=== PATIENT | female | born 1935 | race Caucasian/White ===

== ENCOUNTER 2020-04-05 13:20 | Outpatient (CLI) | payer OTHER, SELFPAY ==
--- NOTE | 2020-04-05 13:30 | XR_ITS ---
WS: [id number] LUMBAR SPINE: 3 VIEWS TECHNIQUE: AP, lateral and L5-S1 spot. HISTORY: ACUTE MIDLINE LOW BACK PAIN WITHOUT SCIATICA COMPARISON: 04/18/2018 Severe osteopenia. Mild S-shaped curvature lumbar spine with asymmetric disc space narrowing most sig nificant at L4-5. L2 compression fracture by 20% is unchanged. No new fracture. Marked facet joint ar thritis throughout the lumbar spine. Atherosclerosis aorta. SI joints are symmetric bilaterally. No soft tissue abnormalities. XR/XR lumbar spine 2-3V* [id number] IMPRESSION: 1. Severe osteopenia and degenerative disc disease most significant at L4-5. 2. Stable chronic L2 compression fracture by 20%.
== END 2020-04-05 13:21 | disposition home or self-care (01) ==
LOC: RAD 13:27
PROVIDERS: PCP Family Medicine; Visit Provider Nurse Practitioner Family
DX: M85.89 Other specified disorders of bone density and structure, multiple sites (principal); M51.36 Other intervertebral disc degeneration, lumbar region; M48.56XA Collapsed vertebra, not elsewhere classified, lumbar region, initial encounter for fracture; X58.XXXA Exposure to other specified factors, initial encounter
CPT/HCPCS: 72100

== ENCOUNTER 2021-01-18 12:34 | Observation (INO) | payer MEDICARE, SELFPAY ==
[2021-01-18] VITALS (53 sets, daily range): BP systolic 156–203; BP diastolic 76–109; PULSE 68–152; RESP 14–38; TEMP 36.4–36.7; O2SAT 94–100; BMI 20.3
--- NOTE | 2021-01-18 12:36 | ECG_ITS ---
[facility] Test Date: 2021-01-18 Pat Name: Mary Montes Department: Room: Gender: Female Gynecologist: : 1935 Requested By: Nicolás Fields Order Number: [id number] Micheal MD: Speedy Beatty M.D. Measurements Intervals [place] Rate: 151 P: 67 MA: 143 QRS: -58 QRSD: 81 T: 72 QT: 327 QTc: 518 Interpretive Statements ATRIAL FLUTTER WITH RVR MARKED LEFT AXIS DEVIATION [QRS AXIS < -30] POSSIBLE RIGHT VENTRICULAR CONDUCTION DELAY [RSR (QR) IN V1/V2] SEPTAL MYOCARDIAL INFARCTION [40+ ms Q WAVE IN V1/V2], OF INDETERMINATE AGE Compared to ECG 01/06/2016 05:13:04 Left-axis deviation now present Myocardial infarct finding now present Sinus bradycardia no longer present T-wave abnormality no longer present Possible ischemia no longer present Electronically Signed On 01-18-2021 17:35:22 CDT by Speedy Beatty M.D. [id number]
--- NOTE | 2021-01-18 12:36 | XR_ITS ---
WS: [id number] Portable AP upright chest, 01/18/2021 Clinical Data: altered mental status Comparison: PA and lateral chest, 09/06/2017. Findings: No nodules, masses or effusions are seen. The heart is normal. The pulmonary vascularity is not increased. No pneumonia or pneumothorax is seen. The diaphragms are flattened. The aortic arch a nd descending aorta show calcification and tortuosity. There are monitor leads on the chest wall. XR/XR chest 1V portable [id number] Impression: Atherosclerosis and hyperinflation.
--- NOTE | 2021-01-18 12:56 | ED_ITS ---
HPI - Psych General: Chief Complaint: Psychiatric Symptoms Stated Complaint: SI/ BEHAVIORAL ISSUES Time Seen by Provider: 01/18/21 12:36 History of Present Illness: HPI Narrative: 85-year-old female presents to the emergency room via EMS. They were called by the neighbor place for also presents police put an affidavit on the chart they found several suicide notes in the house which they brought in copy and scanned to the chart. Patient refuses discussed these she is very verbally aggressive and angry she is angry at her neighbor for what she describes as betraying her. She refuses to answer most questions she denies any abdominal pain chest pain or shortness of breath. The daughter also is filling out an affidavit as did the police. She makes illusions to harming herself in conversation with me but refuses to discuss directly when asked specifically she denies it however the notes reflect otherwise. She refuses to discuss the notes. complaint: suicidal ideation Onset (ago): unknown Duration: constant History of same: No Relieving factors: none Exacerbating factors: none Associated psychiatric symptoms: depression and suicidal ideation Associated symptoms: Reports depression and suicidal ideation; Deny auditory hallucinations, visual hallucinations, delusions or homicidal ideation If self harm: admits thoughts of self harm Review of Systems Const: Denies: fever(s), chills, body aches, change in appetite, fatigue or malaise ENMT: Denies: throat pain, ear or mastoid pain, nasal discharge or nasal congestion Card: Denies: chest pain, edema, dyspnea on exertion or orthopnea Resp: Denies: dyspnea, productive cough or non-productive cough GI: Denies: abdominal pain, nausea, vomiting, hematemesis, coffee ground emesis, diarrhea, constipation, bloating, hematochezia or melena : Denies: flank pain, difficulty voiding, dysuria, urinary frequency or urinary urgency Skin/Breast: Denies: rash or pruritus Psych: Reports: depression and suicidal ideation; Denies: visual hallucinations, auditory hallucinations or homicidal ideation Physical Exam Const: COMMON NORMALS: no acute distress GENERAL APPEARANCE: cooperative and comfortable ORIENTATION/CONSCIOUSNESS: Yes awake, Yes oriented to person, Yes oriented to place and Yes oriented to time HENMT: COMMON NORMALS: normocephalic, atraumatic and hearing grossly normal bilaterally HEAD & SCALP: normocephalic and atraumatic Neck/C-Spine: COMMON NORMALS: no JVD Resp: COMMON NORMALS: normal respiratory effort, No retractions, No use of accessory muscles and clear to auscultation bilaterally AUSCULTATION: clear to auscultation bilaterally Cardio: COMMON NORMALS: no JVD, regular rate, regular rhythm and No murmurs present (Cardio) RATE: regular rate RHYTHM: regular rhythm GI: COMMON NORMALS: Soft to palpation and No hepatosplenomegaly present AUSCULTATION: Yes normoactive bowel sounds PALPATION: Yes Soft to palpation, No Tenderness to palpation present (GI), No Guarding due to palpation present (GI) and Yes No hepatosplenomegaly present Extremity: COMMON NORMALS: normal to inspection, capillary refill normal, no clubbing, cyanosis or edema, no calf tenderness and no pedal edema Neuro: SENSORIUM/ORIENTATION: Yes oriented to person, Yes oriented to place and Yes oriented to time Psych: THOUGHT CONTENT: No delusions Skin: COMMON NORMALS: no rashes or lesions noted GENERAL SKIN EXAM: no rashes or lesions noted Course Vital Signs: Vital signs: Vital Signs Temperature 98.0 F 01/18/21 12:35 Pulse Rate 113 H 01/18/21 15:21 Respiratory Rate 16 01/18/21 15:21 Blood Pressure 173/90 01/18/21 15:21 Pulse Oximetry 97 01/18/21 15:21 MDM - Psych MDM Narrative: Medical decision making narrative: Patient placed on a 96-hour hold. We will start working on placement. Acetaminophen came back markedly elevated. We checked with 911 they received a call from the neighbor at around 11:47 AM.Blood was drawn at 117. Suspect that it was approximately 2 hours after ingestion. Acidosis started will get serial enzymes as well admit to ICU. Consult psychiatry. Lab Data: Labs: Lab Results 01/18/21 01/18/21 01/18/21 Range/Units 13:17 13:17 13:17 WBC 6.2 (4.0-10.0) 10^3/ uL RBC 4.48 (4.1-5.3) 10^6/u L Hgb 14.6 (11.5-15.3) g/dL Hct 43.9 (37.0-47.0) % MCV 98.0 (81-99) fL MCH 32.6 (28.0-34.0) pg MCHC 33.3 (30.0-36.0) g/dL RDW 12.5 (12.1-15.1) % Plt Count 175 (130-400) 10^3/c mm MPV 10.2 (7.4-10.4) fL Neut % (Auto) 62.3 % Lymph % (Auto) 29.7 % [place] % (Auto) 6.4 % Eos % (Auto) 1.1 % Baso % (Auto) 0.3 % Neut # (Auto) 3.87 (1.8-7.7) 10^3/u L Lymph # (Auto) 1.9 (0.8-4.8) 10^3/u L [place] # (Auto) 0.4 (0.2-0.9) 10^3/u L Eos # (Auto) 0.1 (0.0-0.8) 10^3/u L Baso # (Auto) 0.0 (0.0-0.1) 10^3/u L Nucleated RBC % (a uto) 0 % Nucleated RBCs # 0.0 /100WBC PT (12.1-14.9) SECO NDS INR (0.8-1.2) APTT (23.9-36.7) SECO NDS Sodium 139 (136-145) mmol/L Potassium 3.6 (3.5-5.1) mmol/L Chloride 100 (98-107) mmol/L Carbon Dioxide 24 (22-29) mmol/L Anion Gap 18.6 (5-19) BUN 19 (8-23) mg/dL Creatinine 0.8 (0.5-0.9) mg/dL GFR Calculation Not Reportable Glucose 127 H (65-115) mg/dL Calculated Osmolal ity 292 (285-295) mOsm/k g Calcium 9.0 (8.5-10.5) mg/dL Total Bilirubin 0.6 (0.15-1.2) mg/dL AST 14 (0-32) U/L ALT 7 (0-33) U/L Alkaline Phosphata se 80 (35-105) IU/L Ammonia 27 (11-51) umol/L Total Protein 6.8 (6.6-8.7) g/dL Albumin 4.1 (3.5-5.2) g/dL Globulin 2.7 (1.3-4.6) g/dL TSH 2.28 (0.27-4.20) uIU/ mL Urine Color (Yellow) Urine Appearance (CLEAR) Urine pH (5-7) Ur Specific Gravit y (1.005-1.030) Urine Protein (Negative) Urine Glucose (UA) (Normal) Urine Ketones (Negative) Urine Blood (Negative) Urine Nitrate (Negative) Urine Bilirubin (Negative) Urine Urobilinogen (Negative) mg/dL Ur Leukocyte Lisa ase (Negative) Salicylates < 0.3 L (3-10) mg/dL Urine Opiates Scre en (Negative) ng/mL Acetaminophen 131.3 H* (10-30) ug/mL Ur Barbiturates Sc reen (Negative) ng/mL Ur Phencyclidine S crn (Negative) ng/mL Ur Amphetamines Sc reen (Negative) ng/mL U Benzodiazepines Scrn (Negative) ng/mL Urine Cocaine Scre en (Negative) ng/mL U Marijuana (THC) Screen (Negative) ng/mL Ethyl Alcohol < 10 (0-10) mg/dL 01/18/21 01/18/21 01/18/21 Range/Units 13:17 13:22 13:22 WBC (4.0-10.0) 10^3/ uL RBC (4.1-5.3) 10^6/u L Hgb (11.5-15.3) g/dL Hct (37.0-47.0) % MCV (81-99) fL MCH (28.0-34.0) pg MCHC (30.0-36.0) g/dL RDW (12.1-15.1) % Plt Count (130-400) 10^3/c mm MPV (7.4-10.4) fL Neut % (Auto) % Lymph % (Auto) % [place] % (Auto) % Eos % (Auto) % Baso % (Auto) % Neut # (Auto) (1.8-7.7) 10^3/u L Lymph # (Auto) (0.8-4.8) 10^3/u L [place] # (Auto) (0.2-0.9) 10^3/u L Eos # (Auto) (0.0-0.8) 10^3/u L Baso # (Auto) (0.0-0.1) 10^3/u L Nucleated RBC % (a uto) % Nucleated RBCs # /100WBC PT 13.30 (12.1-14.9) SECO NDS INR 0.98 (0.8-1.2) APTT 30.4 (23.9-36.7) SECO NDS Sodium (136-145) mmol/L Potassium (3.5-5.1) mmol/L Chloride (98-107) mmol/L Carbon Dioxide (22-29) mmol/L Anion Gap (5-19) BUN (8-23) mg/dL Creatinine (0.5-0.9) mg/dL GFR Calculation Glucose (65-115) mg/dL Calculated Osmolal ity (285-295) mOsm/k g Calcium (8.5-10.5) mg/dL Total Bilirubin (0.15-1.2) mg/dL AST (0-32) U/L ALT (0-33) U/L Alkaline Phosphata se (35-105) IU/L Ammonia (11-51) umol/L Total Protein (6.6-8.7) g/dL Albumin (3.5-5.2) g/dL Globulin (1.3-4.6) g/dL TSH (0.27-4.20) uIU/ mL Urine Color Yellow (Yellow) Urine Appearance Clear (CLEAR) Urine pH 5 (5-7) Ur Specific Gravit y 1.020 (1.005-1.030) Urine Protein Neg (Negative) Urine Glucose (UA) Norm (Normal) Urine Ketones Negative (Negative) Urine Blood Neg (Negative) Urine Nitrate Negative (Negative) Urine Bilirubin Neg (Negative) Urine Urobilinogen Norm (Negative) mg/dL Ur Leukocyte Lisa ase Negative (Negative) Salicylates (3-10) mg/dL Urine Opiates Scre en Negative (Negative) ng/mL Acetaminophen (10-30) ug/mL Ur Barbiturates Sc reen Negative (Negative) ng/mL Ur Phencyclidine S crn Negative (Negative) ng/mL Ur Amphetamines Sc reen Negative (Negative) ng/mL U Benzodiazepines Scrn Negative (Negative) ng/mL Urine Cocaine Scre en Negative (Negative) ng/mL U Marijuana (THC) Screen Negative (Negative) ng/mL Ethyl Alcohol (0-10) mg/dL Discharge Plan Discharge Patient Disposition: Admitted As Inpatient Clinical Impression: Suicide attempt, Acetaminophen overdose Condition: Stable Prescriptions: No Action metoprolol tartrate 100 mg tablet 100 mg PO BID RF: 0 Referrals: Jaquan Sidhu MD [Primary Care Provider] - Patient Instructions: Opioid Safety Coding Level of Care Code ED Foreign Exchange Clerk for Kelly Fwd Exam Comprehensive
[2021-01-18 13:26] LABS: Basophils % 0.3 %; Eosinophils # 0.1 10^3/uL (0.0-0.8); Eosinophils % 1.1 %; Hematocrit 43.9 % (37.0-47.0); Hemoglobin 14.6 g/dL (11.5-15.3); Lymphocytes # 1.9 10^3/uL (0.8-4.8); Lymphocytes % 29.7 %; Mean Corpuscular HGB Conc 33.3 g/dL (30.0-36.0); Mean Corpuscular Hemoglobin 32.6 pg (28.0-34.0); Mean Platelet Volume 10.2 fL (7.4-10.4); Monocytes # 0.4 10^3/uL (0.2-0.9); Monocytes % 6.4 %; Neutrophils # 3.87 10^3/uL (1.8-7.7); Neutrophils % 62.3 %; Nucleated Red Blood Cells % 0 %; Platelet Count 175 10^3/cmm (130-400); Red Blood Count 4.48 10^6/uL (4.1-5.3); Red Cell Distribution Width 12.5 % (12.1-15.1); White Blood Count 6.2 10^3/uL (4.0-10.0)
[2021-01-18 13:42] LABS: Add Urine Microscopic? NO; Charge for UA Resulting for Rev
[2021-01-18 13:45] LABS: Ammonia 27 umol/L (11-51)
[2021-01-18 13:49] LABS: Bilirubin Urine Neg (Negative); Blood Urine Neg (Negative); Glucose Urine UA Norm (Normal); Ketones Urine Negative (Negative); Leukocyte Esterase Urine Negative (Negative); Nitrate Urine Negative (Negative); Protein Urine Neg (Negative); Urine Appearance Clear (CLEAR); Urine Color Yellow (Yellow); Urobilinogen Urine Norm (Negative); pH Urine 5 (5-7)
[2021-01-18 13:55] LABS: Alanine Aminotransferase 7 U/L (0-33); Albumin Level 4.1 g/dL (3.5-5.2); Alkaline Phosphatase 80 IU/L (35-105); Anion Gap 18.6 (5-19); Aspartate Amino Transferase 14 U/L (0-32); Blood Urea Nitrogen 19 mg/dL (8-23); Carbon Dioxide 24 mmol/L (22-29); Chloride 100 mmol/L (98-107); Globulin 2.7 g/dL (1.3-4.6); Glucose 127 mg/dL (65-115); Osmolality Calculated 292 mOsm/kg (285-295); Potassium 3.6 mmol/L (3.5-5.1); Sodium 139 mmol/L (136-145); Thyroid Stimulating Hormone 2.28 uIU/mL (0.27-4.20); Total Bilirubin 0.6 mg/dL (0.15-1.2); Total Protein 6.8 g/dL (6.6-8.7)
[2021-01-18 13:59] LABS: Amphetamines Screen Urine Negative (Negative); Barbiturates Screen Urine Negative (Negative); Benzodiazepines Screen Urine Negative (Negative); Cocaine Screen Urine Negative (Negative); Opiate Screen Urine Negative (Negative); PCP Screen Urine Negative (Negative); THC Screen Urine Negative (Negative)
[2021-01-18 14:11] LABS: Salicylate < 0.3 mg/dL (3-10)
[2021-01-18 14:13] LABS: Acetaminophen 131.3 ug/mL (10-30); Alcohol Level < 10 mg/dL (0-10)
--- NOTE | 2021-01-18 14:27 | PC.NURSE ---
poison control was contacted and info was sent over.
[2021-01-18 14:43] LABS: INR 0.98 (0.8-1.2)
[2021-01-18 14:44] LABS: Partial Thromboplastin Time 30.4 SECONDS (23.9-36.7)
[2021-01-18] MEDS: sodium chloride 0.9% 1,000 ML 999 ML IV (15:16)
[2021-01-18] MEDS: metoprolol tartrate 50 mg Tablet 100 MG PO ×2 (15:16→20:54)
[2021-01-18 16:00] LABS: Troponin(5th) Baseline 19 ng/L (0-10)
--- NOTE | 2021-01-18 16:00 | PM.HP ---
Providers/Chief Complaint Primary Care Provider: Jaquan Sidhu MD Chief Complaint: SI/ BEHAVIORAL ISSUES History of Present Illness Mary Montes is a 85 year old female with no known significant past medical history, presents to the emergency room via EMS. EMS was called by the [facility] for also presents police put an affidavit on the chart they found several suicide notes in the house which they brought in copy and scanned to the chart. When I examined the patient patient refuses to discuss a lot of things, she do not want to discuss much more about herself. History taking is difficult, based on the limited interaction, it looks less likely that she will harm herself, or others. Upon arrival in the ER she was worked up for above-mentioned complaint. Pertinent labs: Serum acetaminophen level:131, serum salicylate level< 0.3, serum Ethyl alcohol level:< 10. CMP is normal, CBC is normal, serum ammonia is normal. Review of Systems Card: Denies: palpitations, edema, swelling of feet/ankles, dyspnea on exertion, orthopnea or leg pain with exertion Resp: Denies: dyspnea, productive cough, wheezing or pain on inspiration GI: Denies: abdominal pain, nausea, vomiting, diarrhea or constipation : Denies: flank pain Musc: Denies: back pain, extremity pain or extremity swelling Neuro: Denies: headache(s), difficulty walking or confusion Medications/Allergies Home Medications Medication Instructions Recorded Confirmed Last Taken Type metoprolol tartrate 100 mg PO BID 01/18/21 01/18/21 01/17/21 History Allergies Allergy/AdvReac Type Severity Reaction Status Date / Time No Known Allergies Allergy Unverified 01/18/21 14:07 Vitals/I&O/Wt Last Vital Signs Temp 98.0 F 01/18/21 12:35 Pulse 113 H 01/18/21 15:21 Resp 16 01/18/21 15:21 BP 173/90 01/18/21 15:21 Pulse Ox 97 01/18/21 15:21 Weight last 48 hrs Weight 58.967 kg Physical Exam Const: COMMON NORMALS: patient oriented x3 HENMT: COMMON NORMALS: normocephalic and atraumatic HEAD & SCALP: normocephalic and atraumatic Resp: AUSCULTATION: clear to auscultation bilaterally Cardio: COMMON NORMALS: regular rate, regular rhythm, S1 normal heart sound present, S2 normal heart sound present, No gallops present (Cardio), No murmurs present (Cardio), No rub (Cardio) and Peripheral pulses 2+ throughout RATE: regular rate RHYTHM: regular rhythm HEART SOUNDS: S1 normal heart sound present and S2 normal heart sound present PERIPHERAL PULSES: Peripheral pulses 2+ throughout GI: COMMON NORMALS: Normal to inspection, nondistended, normoactive bowel sounds present, Soft to palpation, non-tender, No hepatosplenomegaly present and no masses AUSCULTATION: Yes normoactive bowel sounds PALPATION: Yes Soft to palpation and Yes No hepatosplenomegaly present RECTAL EXAM: deferred Extremity: COMMON NORMALS: no clubbing, cyanosis or edema and no pedal edema Neuro: COMMON NORMALS: patient oriented x3 Data : 01/18/21 13:17 01/18/21 13:17 A&P Assessment and plan (1) Acetaminophen overdose: Currently she is receiving NAC as per the protocol. Monitor serum acetaminophen level: Every 6 hours Monitor CMP every 6 hours. Poison control contacted. Status: Acute (2) Suicide attempt: Consult psych Status: Acute Attestations Medical Necessity Statement*: Patient needs to be in hospital for management of acetaminophen overdose and suicidal ideation. Anticipated length of stay greater than 2 midnights. Coding Level of Care Code Acute Cylinder Machine Operator Pulp Drier for Kelly Lucero Diagnoses Acetaminophen overdose T39.1X1A Suicide attempt T14.91XA
[2021-01-18 16:18] LABS: Troponin 5 2HR 13.44 ng/L (0-10); Troponin 5 2HR Delta -5.56 ABS# (0-10)
--- NOTE | 2021-01-18 16:49 | ECG_ITS ---
[facility] Test Date: 2021-01-18 Pat Name: Mary Montes Department: Room: Gender: Female Numerical Control Nesting Operator: : 1935 Requested By: Nicolás Fields Order Number: [id number] Micheal MD: Speedy Beatty M.D. Measurements Intervals [place] Rate: 80 P: 147 ME: 166 QRS: -25 QRSD: 86 T: 151 QT: 368 QTc: 427 Interpretive Statements ECTOPIC ATRIAL RHYTHM POSSIBLE LEFT ATRIAL ENLARGEMENT [-0.1mV P WAVE IN V1/V2] POSSIBLE RIGHT VENTRICULAR CONDUCTION DELAY [RSR (QR) IN V1/V2] SEPTAL MYOCARDIAL INFARCTION [40+ ms Q WAVE IN V1/V2], OF INDETERMINATE AGE PROBABLE LATERAL MYOCARDIAL INFARCTION [35 ms Q WAVE IN I/aVL/V5/V6], OF INDETERMINATE AGE Compared to ECG 01/18/2021 13:29:28 Ectopic atrial rhythm now present Left-axis deviation no longer present Myocardial infarct finding still present Electronically Signed On 01-18-2021 18:34:21 CDT by Speedy Beatty M.D. [email or web address] county [email or web address] medical specialty hospital - [id number]
[2021-01-18 20:33] LABS: Acetaminophen 46.1 ug/mL (10-30); Alanine Aminotransferase 6 U/L (0-33); Albumin Level 3.6 g/dL (3.5-5.2); Alkaline Phosphatase 72 IU/L (35-105); Anion Gap 17.2 (5-19); Aspartate Amino Transferase 11 U/L (0-32); Blood Urea Nitrogen 14 mg/dL (8-23); Calcium 8.3 mg/dL (8.5-10.5); Carbon Dioxide 20 mmol/L (22-29); Chloride 103 mmol/L (98-107); Globulin 2.6 g/dL (1.3-4.6); Glucose 111 mg/dL (65-115); Osmolality Calculated 283 mOsm/kg (285-295); Potassium 4.2 mmol/L (3.5-5.1); Sodium 136 mmol/L (136-145); Total Bilirubin 0.5 mg/dL (0.15-1.2); Total Protein 6.2 g/dL (6.6-8.7)
[2021-01-18] MEDS: enoxaparin 40 mg/0.4 mL Syringe SUBCUT (20:54)
[2021-01-18] MEDS: sodium chloride 0.9% 1,000 ML 75 ML IV (21:13)
--- NOTE | 2021-01-18 21:15 | PC.NURSE ---
Pt is receiving SQ lovenox for VTE prevention
[2021-01-18 23:56] LABS: Acetaminophen 24.4 ug/mL (10-30)
[2021-01-19] VITALS (9 sets, daily range): BP systolic 125–183; BP diastolic 55–92; PULSE 67–71; RESP 15–33; TEMP 36.4–36.7; O2SAT 95–98
[2021-01-19 01:25] LABS: Alanine Aminotransferase 6 U/L (0-33); Albumin Level 3.5 g/dL (3.5-5.2); Alkaline Phosphatase 69 IU/L (35-105); Anion Gap 13.8 (5-19); Aspartate Amino Transferase 12 U/L (0-32); Blood Urea Nitrogen 14 mg/dL (8-23); Calcium 8.4 mg/dL (8.5-10.5); Carbon Dioxide 24 mmol/L (22-29); Chloride 104 mmol/L (98-107); Globulin 2.6 g/dL (1.3-4.6); Glucose 85 mg/dL (65-115); Osmolality Calculated 286 mOsm/kg (285-295); Potassium 3.8 mmol/L (3.5-5.1); Sodium 138 mmol/L (136-145); Total Bilirubin 0.6 mg/dL (0.15-1.2); Total Protein 6.1 g/dL (6.6-8.7)
[2021-01-19] MEDS: hyDRALAzine 25 mg Tablet PO ×4 (02:29→20:43)
[2021-01-19 06:23] LABS: Alanine Aminotransferase 7 U/L (0-33); Alkaline Phosphatase 61 IU/L (35-105); Blood Urea Nitrogen 13 mg/dL (8-23); Calcium 8.5 mg/dL (8.5-10.5); Glucose 92 mg/dL (65-115); INR 1.12 (0.8-1.2); Magnesium 1.8 mg/dL (1.7-2.3); Phosphorus 2.5 mg/dL (2.5-4.5); Total Bilirubin 0.6 mg/dL (0.15-1.2)
[2021-01-19 06:42] LABS: Albumin Level 3.2 g/dL (3.5-5.2); Carbon Dioxide 16 mmol/L (22-29); Chloride 106 mmol/L (98-107); Osmolality Calculated 286 mOsm/kg (285-295); Sodium 138 mmol/L (136-145)
[2021-01-19 06:43] LABS: Anion Gap 20.5 (5-19); Aspartate Amino Transferase 16 U/L (0-32); Potassium 4.5 mmol/L (3.5-5.1)
[2021-01-19 06:46] LABS: Acetaminophen 8.4 ug/mL (10-30)
[2021-01-19] MEDS: ondansetron 2 mg/ML SDV 2 mL 4 MG IVP (08:29)
[2021-01-19] MEDS: metoprolol tartrate 50 mg Tablet 100 MG PO ×2 (08:39→20:43)
--- NOTE | 2021-01-19 10:15 | PC.CHAP ---
Pastoral Care Encounter/Spiritual Assessment Type of Contact [x] Declined assistant golf professional visit [] Patient/Family/Request visit [] Outpatient visit [] Follow-up visit [] Physician referral [] Code/Alert [] Routine visit [] Staff referral [] Actively dying [] Patient sleeping [] Family support [] [] Out of room [] Palliative care [] [] Receiving care in room [] Pre-surgical visit [] Trauma [] Long length of stay [] ICU visit [] Other: Relational/Emotional Strength [] Patient feels connected with others/family/visitors/staff [] Distress [] Loneliness/isolation [] Abandonment Spirituality of Patient [] Person of Nemo [] Attends Yazidi of their Nemo [] Believes in Prayer [] Reads Bible or Cheondoism materials [] There are Spiritual issues to be addressed Applications Instructor Interventions [] Prayer [] Active listening [] Non-anxious presence [] Spiritual/emotional support [] Crisis/trauma care [] Spiritual counseling [] Bereavement support [] Provided bereavement packet [] Provided Bible/devotional materials [] Provided toy/stuffed animal, coloring book to patient or family member [] Provided Communion [] Anointing/Point Lookout [] Salvation [] Completed spiritual assessment [] Other: Impact on Illness or Injury [] Angry [] Fearful [] Anxious [] Often cries [] Exhaustion [] Unable to work [] Unable to attend religious [] Unable to walk/stand [] Unable to read [] Unable to drive [] Unable to eat/drink [] Unable to sleep [] Unable to be with family [] Patient intubated [] Other: Summary Declined assistant golf professional visit Time spent with patient 5 mins
--- NOTE | 2021-01-19 10:57 | P.CONIM_ITS ---
Providers/Reason for Consult Consulting Physican/Specialty*: Lenard Isaacs MD. Psychiatry. Reason for Consult*: Evaluation for lethality, safety for discharge or need for further psychiatric treatment. Attending Physician: Jake Gallego MD Primary Care Provider: Jaquan Sidhu MD Psych Consult HPI History of Present Illness Mary Montes is a 85 year old female who presented to the emergency department with the following report: Chief Complaint: Psychiatric Symptoms Stated Complaint: SI/ BEHAVIORAL ISSUES Time Seen by Provider: 01/18/21 12:36 History of Present Illness: HPI Narrative: 85-year-old female presents to the emergency room via EMS. They were called by the [facility] for also presents police put an affidavit on the chart they found several suicide notes in the house which they brought in copy and scanned to the chart. Patient refuses discussed these she is very verbally aggressive and angry she is angry at her neighbor for what she describes as betraying her. She refuses to answer most questions she denies any abdominal pain chest pain or shortness of breath. The daughter also is filling out an affidavit as did the police. She makes illusions to harming herself in conversation with me but refuses to discuss directly when asked specifically she denies it however the notes reflect otherwise. She refuses to discuss the notes. complaint: suicidal ideation Onset (ago): unknown Duration: constant History of same: No Relieving factors: none Exacerbating factors: none Associated psychiatric symptoms: depression and suicidal ideation Associated symptoms: Reports depression and suicidal ideation; Deny auditory hallucinations, visual hallucinations, delusions or homicidal ideation If self harm: admits thoughts of self harm. She is admitted to the [facility] unit for definitive treatment of her issues. Psychiatric consult requested to assess concerns of lethality. She and I had a lengthy discussion about her current circumstances and psychosocial history. I gave her multiple opportunities during that time she shared with me that she was safe and that there would be no concerns if she were to be discharged however she did get the opportunity to have existential conversation about a person's right to do what they want to do to their own body. She spent much of the time meeting about her anger at her reportedly closest friend for bringing concerns about possible safety to authorities. She never would say that her friend wasn't right she would say it was done of her business. About this justowriter operator's inability to actually know what she is taking but she never took the opportunity to say that we did not have any worries in her going back home. She discussed with me about her right to go back home and her right to do what she wants to be with her body. We discussed her long family history of depression her own life with depression not being an active treatment because someone retired. We also discussed her last suicide attempt that we were aware of an excerpt of which is included below for context. Never during our conversation would she contract for safety. 01/06/16 Date of Service: Jan 06, 2016 Copies to: Jaquan Sidhu MD Chief Complaint: Unresponsive HPI: Patient is a 80-year-old female who evidently lives alone who presented to the emergency room via EMS after being found unresponsive. Family been unable to reach her and went to check on her. When she was found she was unresponsive. EMS was called. Initial saturations were 80%. They gave her 4 mg of Narcan in the field. They put oxygen on her. A short time later, her oxygenation improved and she started to come around. It was not immediately after the Narcan was given. An empty bottle of hydrocodone had been found but it was not known if it was hers or if they had had any in it. She is known to be on benzodiazepines chronically among other medicines listed below. She told EMS that she wanted to and insinuated the same with nurses in the emergency room.. Family suggested that she may have some mild dementia but it does not sound like she has a formal diagnosis. She has been acting the bit different lately. There was no indication of loss of bowel or bladder function, vomiting at the scene reported. Family did not know of any other recent complaints. They went home and are not currently available for discussion. History is limited. The majority of my information is obtained from ER physician and ER nu rse. Workup in the emergency room with somewhat unremarkable as noted below. At this point in time is presumed that she overdosed given repeated announcements of wanting to , although is not entirely clear what she might have overdosed on. Allergies: Coded Allergies: No Known Allergies (Unverified , 07/07/10) Active Meds: EMS gave her 4 mg of Narcan Home Meds: Available list includes the following but will need to be confirmed further Josembalta (Duloxetine HCl) 60 Mg Capsule.dr 60 Mg PO DAILY Clorazepate (Clorazepate Dipotassium) 7.5 Mg Tab 3.75 Mg PO HS Celebrex (Celecoxib) 200 Mg Capsule 200 Mg PO BID Aspirin Chewable (Aspirin) 81 Mg Tab.chew 81 Mg PO DAILY Effexor Xr (Venlafaxine HCl) 150 Mg Capcr 75 Mg PO DAILY Prilosec (Omeprazole) 20 Mg Capsule.dr 20 Mg PO DAILY Trazodone (Trazodone HCl) 100 Mg Tablet 100 Mg PO HS Metoprolol Xl (Metoprolol Succinate) 100 Mg Tab.sr.24h 100 Mg PO BID Past Medical History Past Medical/Social History: Anxiety, details unknown Depression, details unknown Possible dementia, details unknown Denies breathing problems but chronically smokes and is recently had an radiology visit with diagnosis of emphysema No clear history of heart disease Cataract surgery History is otherwise presently unknown Family Medical History: Reports: Other (unable to obtain secondary to patient's mental status) Smoke: Reports: Current Alcohol: Reports: Other (unknown) Drugs: Reports: Other (unknown) Lives: Reports: Alone (reportedly) Meds Current Medications: Current Medications Generic Name Dose Route Start Last Admin Trade Name Freq PRN Reason Stop Dose Admin Enoxaparin Sodium 40 mg 01/18/21 18:00 01/18/21 20:54 Enoxaparin 40 Mg /0.4 Ml Syringe SUBCUT 40 mg Q24H ALE Administration Hydralazine HCl 25 mg 01/18/21 21:55 01/19/21 08:39 Hydralazine 25 M g Tablet PO 25 mg TID ALE Administration Acetylcysteine 5,9 00 mg/ 1,029.5 mls @ 64. 344 mls/hr 01/18/21 20:00 01/19/21 03:45 Dextrose IV 01/19/21 11:59 Infused ONCE ONE Infusion Metoprolol Tartrat e 100 mg 01/18/21 21:00 01/19/21 08:39 Metoprolol Tartr ate 50 Mg Tablet PO 100 mg BID@0900,2100 ALE Administration Ondansetron HCl 4 mg 01/18/21 20:11 01/19/21 08:29 Ondansetron 2 Mg /Ml Sdv 2 Ml IVP 4 mg Q6H PRN Administration NAUSEA AND VOMITI NG Mental Status Exam MSE Comments: This is a slender elderly white female in hospital scrubs with adequate grooming and eye contact. No abnormal movement except for mild psychomotor retardation. Semicooperative with exam in mild distress. Speech was decreased rate and normal volume. Mood described as fine affect organized thought content: Patient would not directly respond to questions about suicidality but denied homicidality there are no delusions reported or noted, she denied auditory or visual hallucinations. Attention and concentration were intact memory was mostly reliable but none were formally tested. He is alert and oriented x3. Insight and judgment are impaired, impulse control is impaired. Vitals/I&O/Wt Last Vital Signs Temp 97.8 F 01/19/21 08:00 Pulse 69 01/19/21 08:00 Resp 18 01/19/21 08:00 BP 128/65 01/19/21 08:00 Pulse Ox 97 01/19/21 08:00 01/18/21 01/19/21 01/19/21 22:59 06:59 14:59 Intake Total 1928.5 / 1928.5 317.411 / 2245.911 1000 / 1000 Output Total 200 / 200 200 / 400 Balance 1728.5 / 1728.5 117.411 / 8523.422 5306 / 1000 Weight last 48 hrs Weight 58.967 kg A&P Assessment and plan (1) Suicide attempt: Status: Acute (2) Acetaminophen overdose: Status: Acute (3) Major depression: Status: Acute Additional A&P Information This is an 85-year-old white female with a long history of depression and past suicide attempts who presents after an apparent suicide attempt continuing to seem focused on her right to . 1. Continue current medication. Patient needs evaluation for appropriate antidepressants. 2. Appropriate for inpatient geriatric evaluation and treatment which is recommended. Attestations NPU Medical Necessity Statement*: N/A. Please see primary team note for medical necessity but recommend inpatient geriatric psychiatry placement. Coding Level of Care Code Acute Civil Engineering Draftsperson for Kelly Lucero Diagnoses Suicide attempt T14.91XA Acetaminophen overdose T39.1X1A Major depression F32.9
[2021-01-19 11:06] LABS: Basophils % 0.4 %; Eosinophils # 0.1 10^3/uL (0.0-0.8); Eosinophils % 1.2 %; Hematocrit 42.3 % (37.0-47.0); Hemoglobin 13.5 g/dL (11.5-15.3); Lymphocytes # 1.8 10^3/uL (0.8-4.8); Lymphocytes % 23.2 %; Mean Corpuscular HGB Conc 31.9 g/dL (30.0-36.0); Mean Corpuscular Hemoglobin 32.5 pg (28.0-34.0); Mean Corpuscular Volume 101.7 fL (81-99); Mean Platelet Volume 10.7 fL (7.4-10.4); Monocytes # 0.5 10^3/uL (0.2-0.9); Monocytes % 5.8 %; Neutrophils # 5.37 10^3/uL (1.8-7.7); Neutrophils % 69.3 %; Nucleated Red Blood Cells % 0 %; Platelet Count 182 10^3/cmm (130-400); Red Blood Count 4.16 10^6/uL (4.1-5.3); Red Cell Distribution Width 12.8 % (12.1-15.1); White Blood Count 7.8 10^3/uL (4.0-10.0)
--- NOTE | 2021-01-19 17:07 | PM.PN ---
Subjective Subjective: Interval history: Patient was seen and examined this morning no acute events overnight.Serum acetaminophen level has normalized, LFTs normal Medications: Reviewed: Yes Vitals/I&O/Wt Last Vital Signs Temp 98.1 F 01/19/21 16:00 Pulse 70 01/19/21 16:17 Resp 16 01/19/21 16:00 BP 165/80 01/19/21 16:00 Pulse Ox 96 01/19/21 16:17 01/19/21 01/19/21 01/19/21 06:59 14:59 22:59 Intake Total 317.411 / 2245.911 1000 / 1000 Output Total 200 / 400 Balance 117.411 / 4678.419 5192 / 1000 Weight last 48 hrs Weight 58.967 kg Physical Exam Const: COMMON NORMALS: patient oriented x3 HENMT: COMMON NORMALS: normocephalic and atraumatic HEAD & SCALP: normocephalic and atraumatic Resp: COMMON NORMALS: clear to auscultation bilaterally AUSCULTATION: clear to auscultation bilaterally Cardio: COMMON NORMALS: regular rate, regular rhythm, S1 normal heart sound present, S2 normal heart sound present, No gallops present (Cardio), No murmurs present (Cardio), No rub (Cardio) and Peripheral pulses 2+ throughout RATE: regular rate RHYTHM: regular rhythm HEART SOUNDS: S1 normal heart sound present and S2 normal heart sound present PERIPHERAL PULSES: Peripheral pulses 2+ throughout GI: COMMON NORMALS: Normal to inspection, nondistended, normoactive bowel sounds present, Soft to palpation, non-tender, No hepatosplenomegaly present and no masses AUSCULTATION: Yes normoactive bowel sounds PALPATION: Yes Soft to palpation and Yes No hepatosplenomegaly present RECTAL EXAM: deferred Extremity: COMMON NORMALS: no clubbing, cyanosis or edema and no pedal edema Neuro: COMMON NORMALS: patient oriented x3 Data : 01/19/21 10:21 01/19/21 05:48 A&P Assessment and plan (1) Acetaminophen overdose: S/P NAC as per the protocol. serum acetaminophen level: Has normalized LFTs normal Monitor CMP Poison control contacted. Status: Acute (2) Suicide attempt: Consult psych. Recommend placement to geriatric neuropsych Status: Acute Attestations Medical Necessity Statement*: Patient is needs to be in hospital for placement to geriatric Neuropsych Unit. Coding Level of Care Code Acute Casting Machine Operator Helper for Chg Fwd Exam Detailed Diagnoses Acetaminophen overdose T39.1X1A Suicide attempt T14.91XA
[2021-01-19] MEDS: enoxaparin 40 mg/0.4 mL Syringe SUBCUT (17:30)
[2021-01-20] VITALS (8 sets, daily range): BP systolic 100–125; BP diastolic 54–70; PULSE 65–82; RESP 15–18; TEMP 36.5–37.2; O2SAT 91–99
[2021-01-20 06:58] LABS: Basophils % 0.3 %; Eosinophils # 0.1 10^3/uL (0.0-0.8); Eosinophils % 2.2 %; Hematocrit 36.8 % (37.0-47.0); Hemoglobin 11.7 g/dL (11.5-15.3); Lymphocytes # 2.2 10^3/uL (0.8-4.8); Lymphocytes % 35.2 %; Mean Corpuscular HGB Conc 31.8 g/dL (30.0-36.0); Mean Corpuscular Hemoglobin 33.1 pg (28.0-34.0); Mean Platelet Volume 10.9 fL (7.4-10.4); Monocytes # 0.5 10^3/uL (0.2-0.9); Monocytes % 7.2 %; Neutrophils # 3.43 10^3/uL (1.8-7.7); Neutrophils % 54.9 %; Nucleated Red Blood Cells % 0 %; Platelet Count 139 10^3/cmm (130-400); Red Blood Count 3.54 10^6/uL (4.1-5.3); Red Cell Distribution Width 12.9 % (12.1-15.1); White Blood Count 6.3 10^3/uL (4.0-10.0)
[2021-01-20 07:16] LABS: Alanine Aminotransferase < 5 U/L (0-33); Alkaline Phosphatase 54 IU/L (35-105); Anion Gap 12.7 (5-19); Aspartate Amino Transferase 11 U/L (0-32); Blood Urea Nitrogen 16 mg/dL (8-23); Calcium 8.2 mg/dL (8.5-10.5); Carbon Dioxide 23 mmol/L (22-29); Chloride 107 mmol/L (98-107); Globulin 2.4 g/dL (1.3-4.6); Glucose 80 mg/dL (65-115); Osmolality Calculated 288 mOsm/kg (285-295); Potassium 3.7 mmol/L (3.5-5.1); Sodium 139 mmol/L (136-145); Total Bilirubin 0.4 mg/dL (0.15-1.2); Total Protein 5.4 g/dL (6.6-8.7)
[2021-01-20] MEDS: morphine 4 mg/mL SDV 1 mL 2 MG IVP (08:34)
[2021-01-20] MEDS: metoprolol tartrate 50 mg Tablet 100 MG PO ×2 (09:23→21:35)
[2021-01-20 12:29] LABS: SARS Covid-2 Antigen Negative (Negative)
--- NOTE | 2021-01-20 17:44 | P.PN_ITS ---
Subjective Subjective: Interval history: Patient was seen and examined this morning no acute events overnight. Medications: Reviewed: Yes Vitals/I&O/Wt Last Vital Signs Temp 98.8 F 01/20/21 15:28 Pulse 72 01/20/21 15:28 Resp 16 01/20/21 15:28 BP 110/70 01/20/21 15:28 Pulse Ox 91 01/20/21 15:28 01/20/21 01/20/21 01/20/21 06:59 14:59 22:59 Intake Total 250 / 250 Balance 250 / 250 Physical Exam Const: COMMON NORMALS: patient oriented x3 HENMT: COMMON NORMALS: normocephalic and atraumatic HEAD & SCALP: no rmocephalic and atraumatic Resp: COMMON NORMALS: clear to auscultation bilaterally AUSCULTATION: clear to auscultation bilaterally Cardio: COMMON NORMALS: regular rate, regular rhythm, S1 normal heart sound present, S2 normal heart sound present, No gallops present (Cardio), No murmurs present (Cardio), No rub (Cardio) and Peripheral pulses 2+ throughout RATE: regular rate RHYTHM: regular rhythm HEART SOUNDS: S1 normal heart sound present and S2 normal heart sound present PERIPHERAL PULSES: Peripheral pulses 2+ throughout GI: COMMON NORMALS: Normal to inspection, nondistended, normoactive bowel s ounds present, Soft to palpation, non-tender, No hepatosplenomegaly present and no masses AUSCULTATION: Yes normoactive bowel sounds PALPATION: Yes Soft to palpation and Yes No hepatosplenomegaly present RECTAL EXAM: deferred Extremity: COMMON NORMALS: no clubbing, cyanosis or edema and no pedal edema Neuro: COMMON NORMALS: patient oriented x3 Data : 01/20/21 04:56 01/20/21 04:56 A&P Assessment and plan (1) Acetaminophen overdose: S/P NAC as per the protocol. serum acetaminophen level: Has normalized LFTs normal Monitor CMP Poison control contacted. Status: Acute (2) Suicide attempt: Consult psych. Recommend placement to geriatric neuropsych Status: Acute Attestations Medical Necessity Statement*: Patient awaiting placement to geriatric neuropsycht Coding Level of Care Code Acute Can Machine Operator for [facility] Fwd Diagnoses Acetaminophen overdose T39.1X1A Suicide attempt T14.91XA
[2021-01-20] MEDS: enoxaparin 40 mg/0.4 mL Syringe SUBCUT (18:33)
[2021-01-20] MEDS: LORazepam 0.5 mg Tablet 0.25 MG PO (21:35)
[2021-01-20] MEDS: hyDRALAzine 25 mg Tablet PO (21:35)
--- NOTE | 2021-01-21 00:24 | PC.NURSE ---
Discharge 1100 [facility] picked up pt for transfer to [facility] in [place]. Pt left with clothes on her back and appropriate paperwork for the transfer. Pt was stable for transport.
--- NOTE | 2021-01-21 00:27 | PC.NURSE ---
PRN Dr. Catalan ordered ativan 0.25 for pt with anxiety and agitation, staff administerd 0.5 ativan by accident. was informed and stated that the dose was still within safe range. Pt was unharmed by this dose.
[2021-01-21 00:34] VITALS: BP 108/61; PULSE 65; RESP 16; TEMP 37
--- NOTE | 2021-01-24 09:13 | PM.DCS ---
Discharge Providers Date of Admission: 01/18/21 15:33 Date of Discharge: January 21, 2021 Attending Provider at Admission: Jake Gallego MD Attending Provider at Discharge: Jake Gallego MD Primary Care Provider: Jaquan Sidhu MD Diagnoses at Discharge Discharge Diagnosis (1) Acetaminophen overdose: Status: Resolved (2) Suicide attempt: Status: Resolved Reason for Visit Reason for Visit: SI/ BEHAVIORAL ISSUES Hospital Course Hospital Course Mary Montes is a 85 year old female with no known significant past medical history, presents to the emergency room via EMS. EMS was called by the [facility] for also presents police put an affidavit on the chart they found several suicide notes in the house which they brought in copy and scanned to the chart. When I examined the patient patient refuses to discuss a lot of things, she do not want to discuss much more about herself. History taking is difficult, based on the limited interaction, it looks less likely that she will harm herself, or others. Upon arrival in the ER she was worked up for above-mentioned complaint. Pertinent labs: Serum acetaminophen level:131, serum salicylate level< 0.3, serum Ethyl alcohol level:< 10. CMP is normal, CBC is normal, serum ammonia is normal. She was admitted for the management of Acetaminophen overdose: and was kept on NAC acetaminophen levels as well as LFT was monitored as per the protocol.Psychiatry was on board for for S/I,NAC was later stopped as the serum acetaminophen level was 8.4 and the LFT was normal.Psychiatry recommended that the patient goes to geriatric psychiatry.Upon medical stabilization She was transferred to [facility]. Physical Exam Const: COMMON NORMALS: patient oriented x3 HENMT: COMMON NORMALS: normocephalic and atraumatic HEAD & SCALP: normocephalic and atraumatic Resp: COMMON NORMALS: clear to auscultation bilaterally AUSCULTATION: clear to auscultation bilaterally Cardio: COMMON NORMALS: regular rate, regular rhythm, S1 normal heart sound present, S2 normal heart sound present, No gallops present (Cardio), No murmurs present (Cardio), No rub (Cardio) and Peripheral pulses 2+ throughout RATE: regular rate RHYTHM: regular rhythm HEART SOUNDS: S1 normal heart sound present and S2 normal heart sound present PERIPHERAL PULSES: Peripheral pulses 2+ throughout GI: COMMON NORMALS: Normal to inspection, nondistended, normoactive bowel sounds present, Soft to palpation, non-tender, No hepatosplenomegaly present and no masses AUSCULTATION: Yes normoactive bowel sounds PALPATION: Yes Soft to palpation and Yes No hepatosplenomegaly present RECTAL EXAM: deferred Extremity: COMMON NORMALS: no clubbing, cyanosis or edema and no pedal edema Neuro: COMMON NORMALS: patient oriented x3 Discharge Data Data Completed and Pending: Completed Studies During Hospitalization Category Date Time Status XR chest 1V mariangel ble [id number] Urgent Exams 01/18/21 12:36 Completed Vitals: Last Vital Signs Temp 98.6 F 01/21/21 00:34 Pulse 65 01/21/21 00:34 Resp 16 01/21/21 00:34 BP 108/61 01/21/21 00:34 Pulse Ox 97 01/20/21 19:07 Discharge Plan Discharge Patient Disposition: Xfer Other Condition: Stable Prescriptions: Continued metoprolol tartrate 100 mg tablet 100 mg PO BID RF: 0 Discharge Orders: Transfer Out of Facility (Order); Ordered 01/20/21 Ordered By: Jake Gallego Referrals: Jaquan Sidhu MD [Primary Care Provider] - Discharge Diet: Regular Discharge Activity: Resume usual activity Discharge Attestations Time Spent in Discharge Care*: less than 30 min Specific Discharge Activities: educating patient, educating and/or supporting family/caregiver, discussing with pcp/other providers, discussing with manager of case management/social workers/dc planners, documenting/other paperwork and evaluating patient/reviewing data Status at Discharge: Cognitive status at discharge: cognitively intact, Behavioral status at discharge: cooperative, Functional status at discharge: independent ambulation Overall status at discharge: patient is back to baseline Quality Metrics Clinical Quality Measures During this hospital stay, did patient experience: None Coding Level of Care Code Acute Chg FW DC note Diagnoses Acetaminophen overdose T39.1X1A Suicide attempt T14.91XA
== END 2021-01-20 23:00 | disposition other institution (70) ==
LOC: ER 16:06 → ICU 18:21 → MEDSURG 01-19 08:38 → ICU 01-20 13:17 → MEDSURG 01-20 13:17
PROVIDERS: Admitting Provider Internal Medicine; Emergency Provider Family Medicine; PCP Family Medicine; Visit Provider Internal Medicine
DX: T39.1X1A Poisoning by 4-Aminophenol derivatives, accidental (unintentional), initial encounter (principal); T14.91XA Suicide attempt, initial encounter; F32.9 Major depressive disorder, single episode, unspecified; F17.210 Nicotine dependence, cigarettes, uncomplicated
CPT/HCPCS: 36415; 51701; 71045; 80053; 80306; 80307; 81003; 82140; 82248; 83735; 84100; 84443; 84484; 85025; 85610; 85730; 87426; 93005; 96365; 96372; 99285; G0378; J0132; J1650; J2270; J2405; J7030; Q0163

== ENCOUNTER 2021-09-05 10:06 | Emergency (ER) | payer MEDICARE, SELFPAY ==
--- NOTE | 2021-09-05 10:10 | PC.NURSE ---
Pt's best friend is Dinorah ([phone])
[2021-09-05 10:12] VITALS: BP 152/84; RESP 22; TEMP 36.8; BMI 22.1
[2021-09-05 10:21] VITALS: BP 152/84; RESP 20; TEMP 36.7
--- NOTE | 2021-09-05 10:46 | ECG_ITS ---
[facility] Test Date: 2021-09-05 Pat Name: Mary Montes Department: Room: Gender: Female Corporate Communications Manager: : 1935 Requested By: Nicolás Fields Order Number: [id number] Micheal MD: Speedy Beatty M.D. Measurements Intervals [place] Rate: 82 P: WI: QRS: 4 QRSD: 88 T: 63 QT: 329 QTc: 386 Interpretive Statements SUPRAVENTRICULAR RHYTHM. BASELINE ARTIFACT Compared to ECG 01/18/2021 17:19:44 Supraventricular rhythm now present Myocardial infarct finding no longer present Electronically Signed On 09-05-2021 17:30:42 THIRD RAIL INSTALLER by Speedy Beatty M.D. [email or web address]
--- NOTE | 2021-09-05 10:46 | XR_ITS ---
WS: [id number] PORTABLE CHEST HISTORY: AMS COMPARISON: 01/18/2021 Lungs are hyperinflated. No pneumonia. New nodule measuring 6 mm at the RIGHT lung base. Normal vascu lature. No pleural effusion or pneumothorax. Cardiac size: Normal. Mediastinum/Aorta: Mild atherosclerosis aorta. Diffuse osteopenia. XR/XR chest 1V portable [id number] IMPRESSION: 1. No pneumonia. 2. Emphysema. 3. New ill-defined 6 mm nodule at the RIGHT lung base. Favor this is probably an area of atelectasis but will need further evaluation to exclude early neopla sm. Follow-up chest CT can be performed. This can be performed on an outpatient basis.
--- NOTE | 2021-09-05 10:56 | PC.PHAR ---
PT UNABLE TO VERIFY MEDICATIONS-MEDICATIONS ENTERED ARE WHAT [employer] HAS FILLED RECENTLY-RXS ENTERED ARE MEDS THAT WERE FILLED ON 07/13/21 90D/S-PRILOSEC 20MG DAILY AND CYMBALTA 60MG DAILY LAST FILLED 04/14/21 90D/S
--- NOTE | 2021-09-05 11:13 | ED_ITS ---
HPI - Altered Mental Status General: Chief Complaint: Altered Mental Status Stated Complaint: PSYCH EVAL Time Seen by Provider: 09/05/21 10:15 History of Present Illness: 85-year-old female presents emergency room via EMS. She cannot really tell me while she is here. She just simply states that did not know what else to do but she is denies hurting anywhere she denies any chest pain abdominal pain dysuria urgency or frequency nausea vomiting diarrhea. She denies any intent to harm her self or others. She is awake alert answers questions. She is aware of time place and person. She is somewhat argumentative at times but follows her request does not appear to be in any resp iratory distress. MD complaint: confusion Onset (ago): unknown Severity: mild Consistency of symptoms: Waxing and Waning Associated symptoms: Deny auditory hallucinations, visual hallucinations, delusions, depression, homicidal ideation, racing thoughts or suicidal ideation Review of Systems Const: Denies: fever(s), chills, body aches, change in appetite, fatigue or malaise ENMT: Denies: throat pain, ear or mastoid pain, nasal discharge or nasal co ngestion Card: Denies: chest pain, edema, dyspnea on exertion or orthopnea Resp: Denies: dyspnea, productive cough or non-productive cough GI: Denies: abdominal pain, nausea, vomiting, hematemesis, coffee ground emesis, diarrhea, constipation, bloating, hematochezia or melena : Denies: flank pain, difficulty voiding, dysuria, urinary frequency or urinary urgency Skin/Breast: Denies: rash or pruritus Psych: Denies: depression, visual hallucinations, auditory hallucinations, suicidal ideation or homicidal ideation [facility] PFSH: Medical History Acetaminophen overdose Major depression Suicide attempt Physical Exam Const: COMMON NORMALS: no acute distress and alert GENERAL APPEARANCE: cooperative and comfortable NUTRITIONAL APPEARANCE: thin ORIENTATION/CONSCIOUSNESS: Yes awake, Yes oriented to person, Yes oriented to place and Yes oriented to time HENMT: COMMON NORMALS: normocephalic, atraumatic, hearing grossly normal bilaterally, external ears normal, EAC's normal, TM's normal bilaterally, Normal external nose present, Normal nasal mucous membranes and turbinates present, moist oral mucous membranes and oropharynx normal HEAD & SCALP: normocephalic and atraumatic NOSE: Normal external nose present and Normal nasal mucous membranes and turbinates present EXTERNAL EAR: Yes external ears normal EXTERNAL AUDITORY CANAL: EAC's normal TYMPANIC MEMBRANE: TM's normal bilater ally Eye: COMMON NORMALS: Equal, round and reactive pupils present, EOMs intact bilaterally, conjunctivae normal and no scleral icterus CONJUNCTIVA: Yes conjunctivae normal PUPIL: Yes Equal, round and reactive pupils present Neck/C-Spine: COMMON NORMALS: no lymphadenopathy, supple and no meningeal signs Resp: COMMON NORMALS: normal respiratory effort, No retractions, No use of accessory muscles and clear to auscultation bilaterally AUSCULTATION: clear t o auscultation bilaterally Cardio: COMMON NORMALS: regular rate and No murmurs present (Cardio) RATE: regular rate GI: COMMON NORMALS: Soft to palpation and No hepatosplenomegaly present AUSCULTATION: Yes normoactive bowel sounds PALPATION: Yes Soft to palpation, No Tenderness to palpation present (GI), No Guarding due to palpation present (GI) and Yes No hepatosplenomegaly present : COMMON NORMALS: Yes no CVA tenderness BLADDER/KIDNEY EXAM: Yes no CVA tenderness Back/Pelvis: COMMON NORMALS: no CVA tenderness Extremity: COMMON NORMALS: normal to inspection, full ROM, capillary refill normal, no clubbing, cyanosis or edema, no calf tenderness and no pedal edema Neuro: SENSORIUM/ORIENTATION: Yes alert, Yes oriented to person, Yes oriented to place and Yes oriented to time MENINGEAL SIGNS: Yes no meningeal signs Psych: THOUGHT CONTENT: No delusions Course Vital Signs: Vital signs: Vital Signs Temperature 98.1 F 09/05/21 10:21 Respiratory Rate 20 H 09/05/21 10:21 Blood Pressure 152/84 09/05/21 10:21 MDM - Altered Mental Status Medical Decision Making No family present or any friends present on the scene the patient she were able to contact a neighbor that evidently had COVID for the reason she was sent to the emergency room. Patient denies any suicidal or homicidal ideation while she was here repeatedly. Is no evidence that she is try to harm herself evidently was not attempted acetaminophen overdose previously. She does become easily annoyed with staff with questions regarding her health difficult to get a review of systems and history from her. However in general she is cooperative in terms of doing what we ask in the process of her evaluation. She does not express any suicidal homicidal ideation and there is no grounds for a 96-hour hold. Will discharge patient back to home require request that she follow-up with primary care doctor within the next week. Medical Records I reviewed the patient's medical records. Lab Data I reviewed the patient's lab results. : 09/05/21 10:00 09/05/21 11:44 Radiology Impressions Chest X-Ray 09/05/21 10:46 IMPRESSION: 1. No pneumonia. 2. Emphysema. 3. New ill-defined 6 mm nodule at the RIGHT lung base. Favor this is probably an area of atelectasis but will need further evaluation to exclude early neoplasm. Follow-up chest CT can be performed. This can be performed on an outpatient basis. Head CT 09/05/21 11:16 IMPRESSION: 1. No acute intracranial hemorrhage or edema. 2. Moderate atrophy and mild chronic microvascular ischemic changes. No significant progression since 2015. Laboratory Results WBC 5.3 10^3/uL (4.0-10.0) 09/05/21 10:00 RBC 4.33 10^6/uL (4.1-5.3) 09/05/21 10:00 Hgb 14.3 g/dL (11.5-15.3) 09/05/21 10:00 Hct 42.3 % (37.0-47.0) 09/05/21 10:00 MCV 97.7 fl (81-99) 09/05/21 10:00 MCH 33.0 pg (28.0-34.0) 09/05/21 10:00 MCHC 33.8 g/dL (30.0-36.0) 09/05/21 10:00 RDW 12.1 % (12.1-15.1) 09/05/21 10:00 Plt Count 168 10^3/cmm (130-400) 09/05/21 10:00 MPV 11.0 fL (7.4-10.4) H 09/05/21 10:00 Neut % (Auto) 62.7 % 09/05/21 10:00 Lymph % (Auto) 28.1 % 09/05/21 10:00 [place] % (Auto) 8.2 % 09/05/21 10:00 Eos % (Auto) 0.8 % 09/05/21 10:00 Baso % (Auto) 0.2 % 09/05/21 10:00 Neut # (Auto) 3.31 10^3/uL (1.8-7.7) 09/05/21 10:00 Lymph # (Auto) 1.5 10^3/uL (0.8-4.8) 09/05/21 10:00 [place] # (Auto) 0.4 10^3/uL (0.2-0.9) 09/05/21 10:00 Eos # (Auto) 0.0 10^3/uL (0.0-0.8) 09/05/21 10:00 Baso # (Auto) 0.0 10^3/uL (0.0-0.1) 09/05/21 10:00 Nucleated RBC % (auto) 0 % 09/05/21 10:00 Nucleated RBCs # 0.0 /100WBC 09/05/21 10:00 Sodium 136 mmol/L (136-145) 09/05/21 11:44 Potassium 4.0 mmol/L (3.5-5.1) 09/05/21 11:44 Chloride 101 mmol/L (98-107) 09/05/21 11:44 Carbon Dioxide 27 mmol/L (22-29) 09/05/21 11:44 Anion Gap 12.0 (5-19) 09/05/21 11:44 BUN 14 mg/dL (8-23) 09/05/21 11:44 Creatinine 0.7 mg/dL (0.5-0.9) 09/05/21 11:44 GFR Calculation Not Reportable 09/05/21 11:44 Glucose 95 mg/dL (65-115) 09/05/21 11:44 Calculated Osmolality 282 mOsm/kg (285-295) L 09/05/21 11:44 Calcium 9.0 mg/dL (8.5-10.5) 09/05/21 11:44 Total Bilirubin 0.6 mg/dL (0.15-1.2) 09/05/21 11:44 AST 10 U/L (0-32) 09/05/21 11:44 ALT 6 U/L (0-33) 09/05/21 11:44 Alkaline Phosphatase 72 IU/L (35-105) 09/05/21 11:44 Total Protein 6.3 g/dL (6.6-8.7) L 09/05/21 11:44 Albumin 3.8 g/dL (3.5-5.2) 09/05/21 11:44 Globulin 2.5 g/dL (1.3-4.6) 09/05/21 11:44 Urine Color Yellow (Yellow) 09/05/21 12:30 Urine Appearance Clear (CLEAR) 09/05/21 12:30 Urine pH 7 (5-7) 09/05/21 12:30 Ur Specific [place] 1.020 (1.005-1.030) 09/05/21 12:30 Urine Protein Neg (Negative) 09/05/21 12:30 Urine Glucose (UA) Norm (Normal) 09/05/21 12:30 Urine Ketones Negative (Negative) 09/05/21 12:30 Urine Blood Neg (Negative) 09/05/21 12:30 Urine Nitrate Negative (Negative) 09/05/21 12:30 Urine Bilirubin Neg (Negative) 09/05/21 12:30 Urine Urobilinogen Norm mg/dL (Negative) 09/05/21 12:30 Ur Leukocyte Esterase Negative (Negative) 09/05/21 12:30 Salicylates < 0.3 mg/dL (3-10) L 09/05/21 11:44 Urine Opiates Screen Negative ng/mL (Negative) 09/05/21 12:30 Acetaminophen < 5.0 ug/mL (10-30) L 09/05/21 11:44 Ur Barbiturates Screen Negative ng/mL (Negative) 09/05/21 12:30 Ur Phencyclidine Scrn Negative ng/mL (Negative) 09/05/21 12:30 Ur Amphetamines Screen Negative ng/mL (Negative) 09/05/21 12:30 U Benzodiazepines Scrn Negative ng/mL (Negative) 09/05/21 12:30 Urine Cocaine Screen Negative ng/mL (Negative) 09/05/21 12:30 U Marijuana (THC) Screen Negative ng/mL (Negative) 09/05/21 12:30 Ethyl Alcohol < 10 mg/dL (0-10) 09/05/21 11:44 Discharge Plan Discharge Patient Disposition: Home Clinical Impression: Dementia Condition: Stable Prescriptions: No Action metoprolol tartrate 100 mg tablet 100 mg PO BID 0RF celecoxib 200 mg capsule 200 mg PO BID 0RF trazodone 100 mg tablet 100 mg PO BEDTIME 0RF Discharge Orders: Discharge ED (Routine); Ordered 09/05/21 Ordered By: Nicolás Sierra Referrals: Jaquan Sidhu MD [Primary Care Provider] - Discharge Diet: Usual diet Discharge Activity: Resume usual activity Patient Instructions: Opioid Safety Activity Restrictions/Additional Instructions: Follow-up with your primary care doc within the next 1 to 2 weeks return for further problems. Coding Level of Care Code ED Seasonal Tax Preparer for Kelly Lucero
[2021-09-05 11:16] LABS: Basophils % 0.2 %; Eosinophils % 0.8 %; Hematocrit 42.3 % (37.0-47.0); Hemoglobin 14.3 g/dL (11.5-15.3); Lymphocytes # 1.5 10^3/uL (0.8-4.8); Lymphocytes % 28.1 %; Mean Corpuscular HGB Conc 33.8 g/dL (30.0-36.0); Mean Corpuscular Volume 97.7 fl (81-99); Monocytes # 0.4 10^3/uL (0.2-0.9); Monocytes % 8.2 %; Neutrophils # 3.31 10^3/uL (1.8-7.7); Neutrophils % 62.7 %; Nucleated Red Blood Cells % 0 %; Platelet Count 168 10^3/cmm (130-400); Red Blood Count 4.33 10^6/uL (4.1-5.3); Red Cell Distribution Width 12.1 % (12.1-15.1); White Blood Count 5.3 10^3/uL (4.0-10.0)
--- NOTE | 2021-09-05 11:16 | CT_ITS ---
WS: [id number] CT HEAD NONCONTRAST HISTORY: AMS TECHNIQUE: Contiguous axial imaging performed through the brain in 2.5 mm imaging. Bone and soft tiss ue windows. Sagittal and coronal reformats reviewed. All CT scans at [facility] use at least one of these dose optimization techniques: automated exposure control; mA and/or kV adjustment per pa tient size (includes targeted exams where dose is matched to clinical indication); or iterative recon struction. DLP: 656.69 mGy.cm COMPARISON: 01/06/2016 and 01/05/2016 Moderate atrophy and mild chronic microvascular ischemic changes in the white matter. There is also a t least mild atrophy of the cerebellum. No area of sulcal effacement or acute infarct identified. No hemorrhage. Ventricles: Ventricles and extra-axial spaces are prominent on the basis of central and peripheral a trophy. No inferior displacement of cerebellar tonsils. Paranasal sinuses: As visualized are clear. Mastoid air cells: Well pneumatized. Calvarium and scalp: Skull is intact with no soft tissue edema or swelling. CT/CT head wo con* [id number] IMPRESSION: 1. No acute intracranial hemorrhage or edema. 2. Moderate atrophy and mild chronic microvascular ischemic changes. No signif icant progression since 2015.
--- NOTE | 2021-09-05 11:43 | PC.NURSE ---
Resting quietly in bed, was resisted lab draw & ekg, but did comply. Unable to answer orientation questions. States she wants to go home & does not want her dtr called.
[2021-09-05 12:13] LABS: Alanine Aminotransferase 6 U/L (0-33); Albumin Level 3.8 g/dL (3.5-5.2); Alkaline Phosphatase 72 IU/L (35-105); Aspartate Amino Transferase 10 U/L (0-32); Blood Urea Nitrogen 14 mg/dL (8-23); Carbon Dioxide 27 mmol/L (22-29); Chloride 101 mmol/L (98-107); Creatinine Clr Calc Pharmacy 44.7238; Globulin 2.5 g/dL (1.3-4.6); Glucose 95 mg/dL (65-115); Osmolality Calculated 282 mOsm/kg (285-295); Sodium 136 mmol/L (136-145); Total Bilirubin 0.6 mg/dL (0.15-1.2); Total Protein 6.3 g/dL (6.6-8.7)
[2021-09-05 12:14] LABS: Acetaminophen < 5.0 ug/mL (10-30); Alcohol Level < 10 mg/dL (0-10); Salicylate < 0.3 mg/dL (3-10)
[2021-09-05 13:03] LABS: Add Urine Microscopic? NO; Charge for UA Resulting for Rev
[2021-09-05 13:38] LABS: Urine Appearance Clear (CLEAR); Urine Color Yellow (Yellow)
[2021-09-05 13:39] LABS: Bilirubin Urine Neg (Negative); Blood Urine Neg (Negative); Glucose Urine UA Norm (Normal); Ketones Urine Negative (Negative); Leukocyte Esterase Urine Negative (Negative); Nitrate Urine Negative (Negative); Protein Urine Neg (Negative); Urobilinogen Urine Norm (Negative); pH Urine 7 (5-7)
[2021-09-05 13:47] LABS: Amphetamines Screen Urine Negative (Negative); Barbiturates Screen Urine Negative (Negative); Benzodiazepines Screen Urine Negative (Negative); Cocaine Screen Urine Negative (Negative); Opiate Screen Urine Negative (Negative); PCP Screen Urine Negative (Negative); THC Screen Urine Negative (Negative)
== END 2021-09-05 13:43 | disposition home or self-care (01) ==
PROVIDERS: Emergency Provider Family Medicine; PCP Family Medicine
DX: F03.90 Unspecified dementia, unspecified severity, without behavioral disturbance, psychotic disturbance, mood disturbance, and anxiety (principal)
CPT/HCPCS: 36415; 70450; 71045; 80053; 80306; 80307; 81003; 85025; 93005; 99284

== ENCOUNTER 2021-09-15 11:42 | Observation (INO) | payer MEDICARE, SELFPAY ==
[2021-09-15 11:46] VITALS: BP 188/102; PULSE 89; RESP 16; TEMP 36.9; O2SAT 97; BMI 21.6
--- NOTE | 2021-09-15 11:58 | CTR_ITS ---
PROCEDURE INFORMATION: Exam: CT Head Without Contrast Exam date and time: 09/15/2021 12:25 PM Age: 85 years old Clinical indication: Altered mental status/memory loss; Confusion or disorientation; Additional info: AMS TECHNIQUE: Imaging protocol: Computed tomography of the head without contrast. Radiation optimization: All CT scans at this facility use at least one of these dose optimization techniques: automated exposure control; mA and/or kV adjustment per patient size (includes targeted exams where dose is matched to clinical indication); or iterative reconstruction. COMPARISON: CT head wo con* [id number] 09/05/2021 12:00 PM RADIATION DOSE METRICS: Total DLP (mGy-cm): 787.6 FINDINGS: Brain: There is no acute intracranial hemorrhage or mass effect. Moderate diffuse volume loss is within the range of normal for patient age. There are small vessel ischemic changes within the periventricular and subcortical white matter, but the normal chun-white matter delineation is maintained. Cerebral ventricles: No ventriculomegaly. Paranasal sinuses: Visualized sinuses are unremarkable. No fluid levels. Mastoid air cells: Visualized mastoid air cells are well aerated. Bones/joints: Unremarkable. No acute fracture. Soft tissues: Unremarkable. CT/CT head wo con* [id number] IMPRESSION: No acute hemorrhage or edema.
--- NOTE | 2021-09-15 12:37 | ED_ITS ---
HPI - SOB/Dyspnea General: Chief Complaint: Shortness of Breath/Dyspnea Stated Complaint: DIFFICULTY BREATHING/ CONFUSION Time Seen by Provider: 09/15/21 11:44 History of Present Illness: HPI Narrative: Patient is brought in by EMS with an initial call for shortness of breath. Upon arrival the patient is in no apparent distress. She appears confused at times and review of her chart shows she does have a history of dementia. The patient does know who she is, where she is, and does get the year right. She does repeatedly asked where she is at throughout the encounter. Patient denies any symptoms at this time. She does not remember calling the ambulance, however she states she lives alone. Associated symptoms: Deny abdominal pain, chest pain, fever(s), nausea, palpitations, polyuria or vomiting Review of Systems Const: Denies: fever(s) or body aches Eyes: Denies: change in vision or blurry vision ENMT: Denies: throat pain or odynophagia Card: Denies: chest pain or palpitations Resp: Denies: dyspnea or productive cough GI: Denies: abdominal pain, nausea or vomiting : Denies: flank pain or dysuria Musc: Denies: neck pain or back pain Skin/Breast: Denies: rash or pruritus Neuro: Denies: headache(s) or numbness in extremities Psych: Denies: anxiety or change in appetite Endo: Denies: polyuria or excessive sweating PFS ED PFSH: Medical History Acetaminophen overdose Major depression Suicide attempt Physical Exam Const: COMMON NORMALS: no acute distress, patient oriented x3 (She does appear confused at times), healthy appearing and alert HENMT: COMMON NORMALS: normocephalic and atraumatic HEAD & SCALP: normocephalic and atraumatic Eye: COMMON NORMALS: Equal, round and reactive pupils present and EOMs intact bilaterally PUPIL: Yes Equal, round and reactive pupils present Neck/C-Spine: COMMON NORMALS: full ROM and supple Resp: COMMON NORMALS: normal respiratory effort, No retractions and No use of accessory muscles Cardio: COMMON NORMALS: regular rate and regular rhythm RATE: regular rate RHYTHM: regular rhythm GI: COMMON NORMALS: Normal to inspection, nondistended, normoactive bowel sounds present, Soft to palpation and non-tender PALPATION: Yes Soft to palpation Back/Pelvis: COMMON NORMALS: thoracic and lumbar spine normal to inspection and no thoracic nor lumbar tenderness Extremity: COMMON NORMALS: normal to inspection and full ROM Neuro: COMMON NORMALS: patient oriented x3 (She does appear confused at times) SENSORIUM/ORIENTATION: Yes alert Psych: COMMON NORMALS: mental status grossly normal and cooperative Skin: COMMON NORMALS: no rashes or lesions noted and no wounds GENERAL SKIN EXAM: no rashes or lesions noted Course Vital Signs: Vital signs: Vital Signs Temperature 98.5 F 09/15/21 11:46 Pulse Rate 89 09/15/21 11:46 Respiratory Rate 16 09/15/21 11:46 Blood Pressure 188/102 09/15/21 11:46 Pulse Oximetry 97 09/15/21 11:46 MDM - SOB/Dyspnea Medical Decision Making Patient is brought in by EMS with an initial call for shortness of breath. Upon arrival the patient is in no apparent distress. She appears confused at times and review of her chart shows she does have a history of dementia. The patient does know who she is, where she is, and does get the year right. She does repeatedly asked where she is at throughout the encounter. Patient denies any symptoms at this time. She does not remember calling the ambulance, however she states she lives alone. Physical exam is unremarkable. The patient is requesting that we do not call her daughter. Will attempt to contact her friend who she states we can call. Will check labs, CT, and reassess. On reassessment I talked to the patient about the test results. Will start antibiotics for urinary tract infection. Will admit to the hospitalist for further work-up and treatment. Lab Data : 09/15/21 12:52 09/15/21 12:13 Labs/Radiology: Radiology Impressions Head CT 09/15/21 11:58 IMPRESSION: No acute hemorrhage or edema. Laboratory Results WBC 5.5 10^3/uL (4.0-10.0) 09/15/21 12:52 Corrected WBC Cancelled 09/15/21 12:13 RBC 4.38 10^6/uL (4.1-5.3) 09/15/21 12:52 Hgb 14.2 g/dL (11.5-15.3) 09/15/21 12:52 Hct 42.6 % (37.0-47.0) 09/15/21 12:52 MCV 97.3 fl (81-99) 09/15/21 12:52 MCH 32.4 pg (28.0-34.0) 09/15/21 12:52 MCHC 33.3 g/dL (30.0-36.0) 09/15/21 12:52 RDW 12.3 % (12.1-15.1) 09/15/21 12:52 Plt Count 166 10^3/cmm (130-400) 09/15/21 12:52 MPV 10.3 fL (7.4-10.4) 09/15/21 12:52 Gran % Cancelled 09/15/21 12:13 Neut % (Auto) 61.1 % 09/15/21 12:52 Lymph % (Auto) 29.9 % 09/15/21 12:52 [place] % (Auto) 7.5 % 09/15/21 12:52 Eos % (Auto) 0.9 % 09/15/21 12:52 Baso % (Auto) 0.4 % 09/15/21 12:52 Neut # (Auto) 3.36 10^3/uL (1.8-7.7) 09/15/21 12:52 Lymph # (Auto) 1.6 10^3/uL (0.8-4.8) 09/15/21 12:52 [place] # (Auto) 0.4 10^3/uL (0.2-0.9) 09/15/21 12:52 Eos # (Auto) 0.1 10^3/uL (0.0-0.8) 09/15/21 12:52 Baso # (Auto) 0.0 10^3/uL (0.0-0.1) 09/15/21 12:52 Absolute Gran (auto) Cancelled 09/15/21 12:13 Nucleated RBC % (auto) 0 % 09/15/21 12:52 Nucleated RBCs # 0.0 /100WBC 09/15/21 12:52 Sodium 137 mmol/L (136-145) 09/15/21 12:13 Potassium 4.3 mmol/L (3.5-5.1) 09/15/21 12:13 Chloride 101 mmol/L (98-107) 09/15/21 12:13 Carbon Dioxide 22 mmol/L (22-29) 09/15/21 12:13 Anion Gap 18.3 (5-19) 09/15/21 12:13 BUN 20 mg/dL (8-23) 09/15/21 12:13 Creatinine 0.8 mg/dL (0.5-0.9) 09/15/21 12:13 GFR Calculation Not Reportable 09/15/21 12:13 Glucose 93 mg/dL (65-115) 09/15/21 12:13 POC Glucose 90 mg/dL (70-110) 09/15/21 13:27 Calculated Osmolality 286 mOsm/kg (285-295) 09/15/21 12:13 Calcium 9.5 mg/dL (8.5-10.5) 09/15/21 12:13 Total Bilirubin 0.7 mg/dL (0.15-1.2) 09/15/21 12:13 AST 17 U/L (0-32) 09/15/21 12:13 ALT 7 U/L (0-33) 09/15/21 12:13 Alkaline Phosphatase 80 IU/L (35-105) 09/15/21 12:13 Total Protein 7.6 g/dL (6.6-8.7) 09/15/21 12:13 Albumin 3.9 g/dL (3.5-5.2) 09/15/21 12:13 Globulin 3.7 g/dL (1.3-4.6) 09/15/21 12:13 Urine Color Yellow (Yellow) 09/15/21 13:04 Urine Appearance Hazy (CLEAR) A 09/15/21 13:04 Urine pH 6 (5-7) 09/15/21 13:04 Ur Specific [place] 1.020 (1.005-1.030) 09/15/21 13:04 Urine Protein Neg (Negative) 09/15/21 13:04 Urine Glucose (UA) Norm (Normal) 09/15/21 13:04 Urine Ketones Negative (Negative) 09/15/21 13:04 Urine Blood Neg (Negative) 09/15/21 13:04 Urine Nitrate Positive (Negative) H 09/15/21 13:04 Urine Bilirubin Neg (Negative) 09/15/21 13:04 Urine Urobilinogen Neg mg/dL (Negative) 09/15/21 13:04 Ur Leukocyte Esterase 2+ (Negative) H 09/15/21 13:04 Urine RBC Rare /hpf (0-2) 09/15/21 13:04 Urine WBC 25-40 /hpf (0-5) H 09/15/21 13:04 Ur Squamous Epith Cells Rare /hpf (0-5) 09/15/21 13:04 Amorphous Sediment Not Reportable 09/15/21 13:04 Urine Bacteria None /hpf (NONE) 09/15/21 13:04 Ur Oval Fat Bodies Cardiovascular Sonographer 09/15/21 13:04 Discharge Plan Discharge Patient Disposition: Placed in Observation Clinical Impression: Urinary tract infection, Altered mental status Coding Level of Care Code ED Trimming Press Operator for Kelly Fwd Exam Comprehensive
--- NOTE | 2021-09-15 12:42 | PC.PHAR ---
PT UNABLE TO VERIFY MEDS. PT STATES WE ARE NOT ALLOWED TO TALK TO ANYONE ABOUT HER VISIT OR MEDS. VERIFIED USING EXTERNAL MED LIST LAST FILLED.
[2021-09-15 12:43] LABS: Alanine Aminotransferase 7 U/L (0-33); Albumin Level 3.9 g/dL (3.5-5.2); Alkaline Phosphatase 80 IU/L (35-105); Aspartate Amino Transferase 17 U/L (0-32); Blood Urea Nitrogen 20 mg/dL (8-23); Calcium 9.5 mg/dL (8.5-10.5); Carbon Dioxide 22 mmol/L (22-29); Chloride 101 mmol/L (98-107); Creatinine Clr Calc Pharmacy 47.7544; Globulin 3.7 g/dL (1.3-4.6); Glucose 93 mg/dL (65-115); Osmolality Calculated 286 mOsm/kg (285-295); Sodium 137 mmol/L (136-145); Total Bilirubin 0.7 mg/dL (0.15-1.2); Total Protein 7.6 g/dL (6.6-8.7)
[2021-09-15 13:07] LABS: Basophils % 0.4 %; Eosinophils # 0.1 10^3/uL (0.0-0.8); Eosinophils % 0.9 %; Hematocrit 42.6 % (37.0-47.0); Hemoglobin 14.2 g/dL (11.5-15.3); Lymphocytes # 1.6 10^3/uL (0.8-4.8); Lymphocytes % 29.9 %; Mean Corpuscular HGB Conc 33.3 g/dL (30.0-36.0); Mean Corpuscular Hemoglobin 32.4 pg (28.0-34.0); Mean Corpuscular Volume 97.3 fl (81-99); Mean Platelet Volume 10.3 fL (7.4-10.4); Monocytes # 0.4 10^3/uL (0.2-0.9); Monocytes % 7.5 %; Neutrophils # 3.36 10^3/uL (1.8-7.7); Neutrophils % 61.1 %; Nucleated Red Blood Cells % 0 %; Platelet Count 166 10^3/cmm (130-400); Red Blood Count 4.38 10^6/uL (4.1-5.3); Red Cell Distribution Width 12.3 % (12.1-15.1); White Blood Count 5.5 10^3/uL (4.0-10.0)
[2021-09-15 13:10] LABS: Anion Gap 18.3 (5-19); Potassium 4.3 mmol/L (3.5-5.1)
--- NOTE | 2021-09-15 13:24 | ECG_ITS ---
[facility] Test Date: 2021-09-15 Pat Name: Mary Montes Department: Room: Gender: Female First Breaker Feeder: : 1935 Requested By: Ancelmo Wesley Order Number: [id number] Micheal MD: Speedy Beatty M.D. Measurements Intervals [place] Rate: 81 P: 83 AR: 147 QRS: -52 QRSD: 94 T: 89 QT: 297 QTc: 347 Interpretive Statements SINUS RHYTHM LEFT AXIS DEVIATION [QRS AXIS < -30] INCOMPLETE RIGHT BUNDLE BRANCH BLOCK [90+ ms QRS DURATION, TERMINAL R IN V1/V2, 40+ ms S IN I/aVL/V4/V5/V6] SEPTAL MYOCARDIAL INFARCTION , OF INDETERMINATE AGE [40+ ms Q WAVE IN V1/V2] Compared to ECG 09/05/2021 10:56:54 Left-axis deviation now present Incomplete right bundle-branch block now present Myocardial infarct finding now present Supraventricular rhythm no longer present Electronically Signed On 09-15-2021 20:10:51 CDT by Speedy Beatty M.D. [id number]
[2021-09-15 13:33] LABS: Glucose Point of Care 90 mg/dL (70-110)
[2021-09-15 13:46] LABS: Add Urine Microscopic? YES; Bilirubin Urine Neg (Negative); Blood Urine Neg (Negative); Glucose Urine UA Norm (Normal); Ketones Urine Negative (Negative); Leukocyte Esterase Urine 2+ (Negative); Nitrate Urine Positive (Negative); Protein Urine Neg (Negative); RBC Urine RARE /hpf (0-2); Squamous Epithelial Cell Urine RARE /hpf (0-5); Urine Appearance Hazy (CLEAR); Urine Color Yellow (Yellow); Urobilinogen Urine Neg (Negative); WBC Urine 25-40 /hpf (0-5); pH Urine 6 (5-7)
[2021-09-15 13:49] LABS: Add Urine Culture? Yes
[2021-09-15] MEDS: cefTRIAXone 1,000 MG in sodium chloride 0.9% (plus) 50 ML 100 MG IV (14:50)
[2021-09-15 14:53] LABS: Amphetamines Screen Urine Negative (Negative); Barbiturates Screen Urine Negative (Negative); Benzodiazepines Screen Urine Negative (Negative); Cocaine Screen Urine Negative (Negative); Opiate Screen Urine Negative (Negative); PCP Screen Urine Negative (Negative); THC Screen Urine Negative (Negative)
[2021-09-15 15:10] VITALS: BP 129/85; PULSE 86; RESP 14; O2SAT 97
[2021-09-15 15:11] LABS: Acetaminophen < 5.0 ug/mL (10-30); Alcohol Level < 10 mg/dL (0-10); Salicylate < 0.3 mg/dL (3-10)
--- NOTE | 2021-09-15 15:40 | P.HP_ITS ---
Providers/Chief Complaint Primary Care Provider: Jaquan Sidhu MD Chief Complaint: DIFFICULTY BREATHING/ CONFUSION History of Present Illness Mary Montes is a 85 year old female with a past medical history of depression, history of suicide attempts in the past, hypertension, history of dementia who presents to [facility] due to altered mental status. Currently patient is in the emergency room she is alert oriented x3, does become drowsy, at times does become confused, but can answer most questions appropriately. Apparently patient was brought in by EMS, as there was concerns for shortness of breath, patient called EMS removed by herself, but upon arrival patient had respiratory distress, patient was acting confused so she was brought here to [facility] for evaluation. Here at [facility], I was called as patient was alert oriented x3, however having episodic episodes of confusion, seems like delirium, and there was concerns of her going home. Also there was some discussion about her going to a correction, this is by patient's family members, who have been calling, but patient does not want us to talk to her family members. As according to patient therefore to see me to go to a correction. Currently patient does not know why she is here in the hospital, has really no complaints, she tells me that people are telling me that I am out of my head. She denies any chest pain, no cardiovascular history, no shortness of breath, does have a history of smoking, no history of COPD, history of strokes, no weakness, no facial droop, no slurring of her words, no focal weakness, no focal paresthesias, no seizure-like episodes. Denies any falls, she does have a history of prior suicide attempts, denies feeling down depressed or sad, denies any suicidal ideation, no homicidal ideation, denies taking too much medication, denies taking too much of Tylenol, denies taking too much of ibuprofen, denies any drug use. She tells me that she just wants to be sit up in bed, and she thinks she will do fine. Medications/Allergies Home Medications Medication Instructions Recorded Confirmed Last Taken Type metoprolol tartrate 100 mg tablet 100 mg PO BID 01/18/21 09/15/21 01/17/21 History celecoxib 200 mg capsule 200 mg PO BID 09/05/21 09/15/21 Unknown History trazodone 100 mg tablet 100 mg PO BEDTIME 09/05/21 09/15/21 Unknown History Allergies Allergy/AdvReac Type Severity Reaction Status Date / Time No Known Allergies Allergy Unverified 01/18/21 14:07 PFSH Acute PFSH: Medical History (Updated 09/15/21 @ 14:26 by Ancelmo Wesley MD) Acetaminophen overdose Major depression Suicide attempt Surgical History (Updated 09/15/21 @ 15:45 by Helder Herron MD) No pertinent past surgical history Social History (Updated 09/15/21 @ 15:43 by Helder Herron MD) Smoking and tobacco status: former smoker Alcohol intake: never Substance/Drug Use: never Vitals/I&O/Wt Last Vital Signs Temp 98.5 F 09/15/21 11:46 Pulse 86 09/15/21 15:10 Resp 14 09/15/21 15:10 BP 129/85 09/15/21 15:10 Pulse Ox 97 09/15/21 15:10 Weight last 48 hrs Weight 58.967 kg Physical Exam Const: COMMON NORMALS: no acute distress and patient oriented x3 Resp: COMMON NORMALS: normal respiratory effort, No retractions, No use of accessory muscles and clear to auscultation bilaterally AUSCULTATION: clear to auscultation bilaterally Cardio: COMMON NORMALS: regular rate, regular rhythm, S1 normal heart sound present and S2 normal heart sound present RATE: regular rate RHYTHM: regular rhythm HEART SOUNDS: S1 normal heart sound present and S2 normal heart sound present GI: COMMON NORMALS: Normal to inspection, nondistended, normoactive bowel sounds present, Soft to palpation, non-tender and No hepatosplenomegaly present Extremity: COMMON NORMALS: no pedal edema Neuro: COMMON NORMALS: patient oriented x3, CN's II-XII intact bilaterally, moves all extremities, no focal motor deficits and no sensory deficits noted Psych: COMMON NORMALS: mental status grossly normal Data : 09/15/21 12:52 09/15/21 12:13 A&P Assessment and plan (1) No pertinent past surgical history: Status: Acute (2) Urinary tract infection: Status: Acute (3) Altered mental status: Status: Acute Plan Altered mental status secondary to UTI -Currently alert oriented x3, follows all commands, no focal neurologic deficits -We will continue Rocephin -Follow urine cultures, monitor for fevers -Continue IV hydration -PT OT -DNR/DNI -Lovenox for DVT prophylaxis Attestations Medical Necessity Statement*: Patient requires hospitalization, outpatient with observation, for altered mental status secondary UTI Coding Level of Care Code Acute Escapement Matcher for Chg Fwd Diagnoses No pertinent past surgical history Z78.9 Urinary tract infection N39.0 Altered mental status R41.82
[2021-09-15 17:01] LABS: Troponin(5th) Baseline 22 ng/L (0-10)
[2021-09-15 18:10] VITALS: BP 164/84; PULSE 73; RESP 16; TEMP 37; O2SAT 96
--- NOTE | 2021-09-15 18:10 | ECG_ITS ---
[facility] Test Date: 2021-09-15 Pat Name: Mary Montes Department: Room: 259 Gender: Female [employer] Supervisor: : 1935 Requested By: Helder Herron Order Number: [id number] Micheal MD: Speedy Beatty M.D. Measurements Intervals [place] Rate: 76 P: 84 SC: 143 QRS: -46 QRSD: 92 T: 63 QT: 351 QTc: 397 Interpretive Statements SINUS RHYTHM LEFT AXIS DEVIATION [QRS AXIS < -30] MODERATE T-WAVE ABNORMALITY, CONSIDER LATERAL ISCHEMIA [-0.1+ mV T WAVE IN I/aVL/V5/V6] Compared to ECG 09/15/2021 11:55:15 T-wave abnormality now present Possible ischemia now present Incomplete right bundle-branch block no longer present Myocardial infarct finding no longer present Electronically Signed On 09-15-2021 20:09:42 CDT by Speedy Beatty M.D. [id number]
[2021-09-15] MEDS: dextrose 5%-sod chloride 0.9% 1,000 ML 75 ML IV (18:27)
[2021-09-15] MEDS: enoxaparin 40 mg/0.4 mL Syringe SUBCUT (18:27)
[2021-09-15 18:57] LABS: Troponin 5 2HR 23.82 ng/L (0-10)
[2021-09-15 19:00] LABS: Troponin 5 2HR Delta 1.82 ABS# (0-10)
[2021-09-15 19:04] LABS: Thyroid Stimulating Hormone 1.37 uIU/mL (0.27-4.20)
[2021-09-15 20:00] VITALS: BP 149/82; PULSE 92; RESP 19; TEMP 36.6; O2SAT 93
[2021-09-15] MEDS: trazodone 100 mg Tablet PO (20:39)
[2021-09-15 21:16] LABS: Glucose Point of Care 119 mg/dL (70-110)
--- NOTE | 2021-09-15 21:38 | ECG_ITS ---
[facility] Test Date: 2021-09-15 Pat Name: Mary Montes Department: Room: 259 Gender: Female [employer] Supervisor: : 1935 Requested By: Helder Herron Order Number: [id number] Micheal MD: Speedy Beatty M.D. Measurements Intervals [place] Rate: 77 P: -86 [place]: 97 QRS: -42 QRSD: 89 T: 39 QT: 356 QTc: 405 Interpretive Statements ECTOPIC ATRIAL RHTYTHM LEFT AXIS DEVIATION [QRS AXIS < -30] SEPTAL MYOCARDIAL INFARCTION , OF INDETERMINATE AGE [40+ ms Q WAVE IN V1/V2] Compared to ECG 09/15/2021 18:24:16 Myocardial infarct finding now present Sinus rhythm no longer present T-wave abnormality no longer present Possible ischemia no longer present Electronically Signed On 09-15-2021 22:47:25 CDT by Speedy Beatty M.D. [id number]
[2021-09-15 23:16] LABS: Troponin 5 6HR 25.74 ng/L (0-10)
[2021-09-15 23:35] LABS: Troponin 5 6HR Delta 3.74 ng/L (0-12)
[2021-09-15 23:55] VITALS: BP 129/83; PULSE 84; RESP 20; TEMP 36.5; O2SAT 97
[2021-09-16] VITALS (7 sets, daily range): BP systolic 126–158; BP diastolic 71–88; PULSE 59–74; RESP 16–19; TEMP 36.6–36.8; O2SAT 97–100
[2021-09-16 05:14] LABS: Basophils % 0.5 %; Eosinophils # 0.1 10^3/uL (0.0-0.8); Eosinophils % 1.4 %; Hematocrit 41.5 % (37.0-47.0); Hemoglobin 13.2 g/dL (11.5-15.3); Lymphocytes # 1.7 10^3/uL (0.8-4.8); Lymphocytes % 40.4 %; Mean Corpuscular HGB Conc 31.8 g/dL (30.0-36.0); Mean Corpuscular Hemoglobin 31.6 pg (28.0-34.0); Mean Corpuscular Volume 99.3 fl (81-99); Mean Platelet Volume 10.7 fL (7.4-10.4); Monocytes # 0.3 10^3/uL (0.2-0.9); Monocytes % 8.1 %; Neutrophils # 2.06 10^3/uL (1.8-7.7); Neutrophils % 49.4 %; Nucleated Red Blood Cells % 0 %; Platelet Count 145 10^3/cmm (130-400); Red Blood Count 4.18 10^6/uL (4.1-5.3); Red Cell Distribution Width 12.2 % (12.1-15.1); White Blood Count 4.2 10^3/uL (4.0-10.0)
[2021-09-16 05:25] LABS: INR 0.99 (0.8-1.2)
[2021-09-16 05:39] LABS: Albumin Level 3.3 g/dL (3.5-5.2); Alkaline Phosphatase 64 IU/L (35-105); Blood Urea Nitrogen 15 mg/dL (8-23); Calcium 9.1 mg/dL (8.5-10.5); Carbon Dioxide 23 mmol/L (22-29); Chloride 104 mmol/L (98-107); Globulin 2.8 g/dL (1.3-4.6); Glucose 115 mg/dL (65-115); Magnesium 1.8 mg/dL (1.7-2.3); Osmolality Calculated 286 mOsm/kg (285-295); Phosphorus 3.3 mg/dL (2.5-4.5); Sodium 137 mmol/L (136-145); Total Bilirubin 0.7 mg/dL (0.15-1.2); Total Protein 6.1 g/dL (6.6-8.7)
[2021-09-16 05:46] LABS: Alanine Aminotransferase 7 U/L (0-33); Anion Gap 14.2 (5-19); Aspartate Amino Transferase 19 U/L (0-32); Potassium 4.2 mmol/L (3.5-5.1)
[2021-09-16] MEDS: dextrose 5%-sod chloride 0.9% 1,000 ML 75 ML IV (06:26)
[2021-09-16 06:41] LABS: Glucose Point of Care 110 mg/dL (70-110)
[2021-09-16] MEDS: metoprolol tartrate 50 mg Tablet 100 MG PO (08:40)
--- NOTE | 2021-09-16 08:45 | PC.NURSE ---
Dr Herron discontinued Aspiration Precautions
--- NOTE | 2021-09-16 09:07 | PM.DCS ---
Discharge Providers Date of Admission: 09/15/21 14:27 Date of Discharge: September 16, 2021 Attending Provider at Admission: Helder Herron MD Attending Provider at Discharge: Helder Herron MD Primary Care Provider: Jaquan Sidhu MD Diagnoses at Discharge Discharge Diagnosis (1) No pertinent past surgical history: Status: Acute (2) Urinary tract infection: Status: Acute (3) Altered mental status: Status: Acute Reason for Visit Reason for Visit: DIFFICULTY BREATHING/ CONFUSION Hospital Course Hospital Course Mary Montes is a 85 year old female with a past medical history of depression, history of suicide attempts in the past, hypertension, history of dementia who presents to [facility] due to altered mental status.? Patient was admitted to [facility] for altered mental status, secondary to UTI, received antibiotic therapy, clinically improved, alert oriented, following all commands, no flank pain, no fevers. Discharged on Cipro for antibiotic therapy for the next 5 days. I did offer prison placement to the patient, as she has been taking a prison placement for some time, and her family has been working her to place her at a prison. However she tells me at this time she wants to go home, she has task to do at home, before she is willing to go to prison. Physical Exam Const: COMMON NORMALS: no acute distress and patient oriented x3 Resp: COMMON NORMALS: normal respiratory effort, No retractions, No use of accessory muscles and clear to auscultation bilaterally AUSCULTATION: clear to auscultation bilaterally GI: COMMON NORMALS: Normal to inspection, nondistended, normoactive bowel sounds present, Soft to palpation, non-tender and No hepatosplenomegaly present PALPATION: Yes Soft to palpation and Yes No hepatosplenomegaly present Extremity: COMMON NORMALS: no pedal edema Neuro: COMMON NORMALS: patient oriented x3 Psych: COMMON NORMALS: mental status grossly normal Discharge Data Studies Completed and Pending Completed Studies During Hospitalization Category Date Time Status CT head wo con* [id number] Urgent Cat Scan 09/15/21 11:58 Completed Pending at discharge Category Date Time Status Complete Blood Count w/Auto AM LABS Lab 09/17/21 04:00 Ordered Complete Blood Count w/Auto AM LABS Lab 09/18/21 04:00 Ordered Comprehensive Metabolic Panel AM LABS Lab 09/17/21 04:00 Ordered Comprehensive Metabolic Panel AM LABS Lab 09/18/21 04:00 Ordered Magnesium AM LABS Lab 09/17/21 04:00 Ordered Magnesium AM LABS Lab 09/18/21 04:00 Ordered Phosphorus AM LABS Lab 09/17/21 04:00 Ordered Phosphorus AM LABS Lab 09/18/21 04:00 Ordered Prothrombin Time INR AM LABS Lab 09/17/21 04:00 Ordered Prothrombin Time INR AM LABS Lab 09/18/21 04:00 Ordered Urine Culture Stat Lab 09/15/21 13:04 Received Radiology Impressions Head CT 09/15/21 11:58 IMPRESSION: No acute hemorrhage or edema. Laboratory Results WBC 4.2 10^3/uL (4.0-10.0) 09/16/21 04:30 Corrected WBC Cancelled 09/15/21 12:13 RBC 4.18 10^6/uL (4.1-5.3) 09/16/21 04:30 Hgb 13.2 g/dL (11.5-15.3) 09/16/21 04:30 Hct 41.5 % (37.0-47.0) 09/16/21 04:30 MCV 99.3 fl (81-99) H 09/16/21 04:30 MCH 31.6 pg (28.0-34.0) 09/16/21 04:30 MCHC 31.8 g/dL (30.0-36.0) 09/16/21 04:30 RDW 12.2 % (12.1-15.1) 09/16/21 04:30 Plt Count 145 10^3/cmm (130-400) 09/16/21 04:30 MPV 10.7 fL (7.4-10.4) H 09/16/21 04:30 Gran % Cancelled 09/15/21 12:13 Neut % (Auto) 49.4 % 09/16/21 04:30 Lymph % (Auto) 40.4 % 09/16/21 04:30 [place] % (Auto) 8.1 % 09/16/21 04:30 Eos % (Auto) 1.4 % 09/16/21 04:30 Baso % (Auto) 0.5 % 09/16/21 04:30 Neut # (Auto) 2.06 10^3/uL (1.8-7.7) 09/16/21 04:30 Lymph # (Auto) 1.7 10^3/uL (0.8-4.8) 09/16/21 04:30 [place] # (Auto) 0.3 10^3/uL (0.2-0.9) 09/16/21 04:30 Eos # (Auto) 0.1 10^3/uL (0.0-0.8) 09/16/21 04:30 Baso # (Auto) 0.0 10^3/uL (0.0-0.1) 09/16/21 04:30 Absolute Gran (auto) Cancelled 09/15/21 12:13 Nucleated RBC % (auto) 0 % 09/16/21 04:30 Nucleated RBCs # 0.0 /100WBC 09/16/21 04:30 PT 13.40 SECONDS (12.1-14.9) 09/16/21 05:05 INR 0.99 (0.8-1.2) 09/16/21 05:05 Sodium 137 mmol/L (136-145) 09/16/21 04:30 Potassium 4.2 mmol/L (3.5-5.1) 09/16/21 04:30 Chloride 104 mmol/L (98-107) 09/16/21 04:30 Carbon Dioxide 23 mmol/L (22-29) 09/16/21 04:30 Anion Gap 14.2 (5-19) 09/16/21 04:30 BUN 15 mg/dL (8-23) 09/16/21 04:30 Creatinine 0.7 mg/dL (0.5-0.9) 09/16/21 04:30 GFR Calculation Not Reportable 09/16/21 04:30 Glucose 115 mg/dL (65-115) 09/16/21 04:30 POC Glucose 110 mg/dL (70-110) 09/16/21 06:10 Calculated Osmolality 286 mOsm/kg (285-295) 09/16/21 04:30 Calcium 9.1 mg/dL (8.5-10.5) 09/16/21 04:30 Phosphorus 3.3 mg/dL (2.5-4.5) 09/16/21 04:30 Magnesium 1.8 mg/dL (1.7-2.3) 09/16/21 04:30 Total Bilirubin 0.7 mg/dL (0.15-1.2) 09/16/21 04:30 AST 19 U/L (0-32) 09/16/21 04:30 ALT 7 U/L (0-33) 09/16/21 04:30 Alkaline Phosphatase 64 IU/L (35-105) 09/16/21 04:30 Troponin T Baseline 22 ng/L (0-10) H 09/15/21 16:26 Troponin T 120 Minute 23.82 ng/L (0-10) H 09/15/21 18: Delta Troponin T 1.82 ABS# (0-10) 09/15/21 18: Troponin T Hi Sens 6Hr 25.74 ng/L (0-10) H 09/15/21 22: Troponin T Hi Sens 6Hr Delta 3.74 ng/L (0-12) 09/15/21 22:26 Total Protein 6.1 g/dL (6.6-8.7) L 09/16/21 04:30 Albumin 3.3 g/dL (3.5-5.2) L 09/16/21 04:30 Globulin 2.8 g/dL (1.3-4.6) 09/16/21 04:30 TSH 1.37 uIU/mL (0.27-4.20) 09/15/21 18: Urine Color Yellow (Yellow) 09/15/21 13:04 Urine Appearance Hazy (CLEAR) A 09/15/21 13:04 Urine pH 6 (5-7) 09/15/21 13:04 Ur Specific [place] 1.020 (1.005-1.030) 09/15/21 13:04 Urine Protein Neg (Negative) 09/15/21 13:04 Urine Glucose (UA) Norm (Normal) 09/15/21 13:04 Urine Ketones Negative (Negative) 09/15/21 13:04 Urine Blood Neg (Negative) 09/15/21 13:04 Urine Nitrate Positive (Negative) H 09/15/21 13:04 Urine Bilirubin Neg (Negative) 09/15/21 13:04 Urine Urobilinogen Neg mg/dL (Negative) 09/15/21 13:04 Ur Leukocyte Esterase 2+ (Negative) H 09/15/21 13:04 Urine RBC Rare /hpf (0-2) 09/15/21 13:04 Urine WBC 25-40 /hpf (0-5) H 09/15/21 13:04 Ur Squamous Epith Cells Rare /hpf (0-5) 09/15/21 13:04 Amorphous Sediment Not Reportable 09/15/21 13:04 Urine Bacteria None /hpf (NONE) 09/15/21 13:04 Ur Oval Fat Bodies Traffic Signal Repairer 09/15/21 13:04 Salicylates < 0.3 mg/dL (3-10) L 09/15/21 12:13 Urine Opiates Screen Negative ng/mL (Negative) 09/15/21 13:04 Acetaminophen < 5.0 ug/mL (10-30) L 09/15/21 12:13 Ur Barbiturates Screen Negative ng/mL (Negative) 09/15/21 13:04 Ur Phencyclidine Scrn Negative ng/mL (Negative) 09/15/21 13:04 Ur Amphetamines Screen Negative ng/mL (Negative) 09/15/21 13:04 U Benzodiazepines Scrn Negative ng/mL (Negative) 09/15/21 13:04 Urine Cocaine Screen Negative ng/mL (Negative) 09/15/21 13:04 U Marijuana (THC) Screen Negative ng/mL (Negative) 09/15/21 13:04 Ethyl Alcohol < 10 mg/dL (0-10) 09/15/21 12:13 Vitals Last Vital Signs Temp 97.9 F 09/16/21 08:00 Pulse 74 09/16/21 08:00 Resp 16 09/16/21 08:00 BP 154/88 09/16/21 08:00 Pulse Ox 97 09/16/21 07:32 Discharge Plan Discharge Patient Disposition: Home Condition: Stable Prescriptions: New ciprofloxacin HCl [Cipro] 250 mg tablet 250 mg PO BID 5 Days Qty: 10 0RF Continued metoprolol tartrate 100 mg tablet 100 mg PO BID 0RF celecoxib 200 mg capsule 200 mg PO BID 0RF trazodone 100 mg tablet 100 mg PO BEDTIME 0RF Discharge Orders: Discharge Order (Routine); Ordered 09/16/21 Ordered By: Helder Herron Referrals: Jaquan Sidhu MD [Primary Care Provider] - Discharge Diet: Regular Discharge Activity: Resume usual activity Patient Instructions: Opioid Safety Activity Restrictions/Additional Instructions: -Please ambulate with care -Please follow-up with primary care in 1 week Discharge Attestations Time Spent in Discharge Care*: less than 30 min Status at Discharge: Cognitive status at discharge: cognitively intact, Behavioral status at discharge: cooperative, Quality Metrics Clinical Quality Measures [ No reported AMI, CVA or VTE this stay] Coding Level of Care Code Acute Chg FW DC note Diagnoses No pertinent past surgical history Z78.9 Urinary tract infection N39.0 Altered mental status R41.82
--- NOTE | 2021-09-16 10:25 | PC.OT ---
PT DISCHARGING TODAY. REFUSED OT EVAL. REPORTS SHE LIVES ALONE BUT HER DAUGHTER WILL BE TAKING HER HOME. WHEN ASKED WHO WILL HELP HER IF NEEDED SHE STATES I DO NOT WANT TO THINK ABOUT THAT.
[2021-09-16 12:03] LABS: Glucose Point of Care 128 mg/dL (70-110)
--- NOTE | 2021-09-16 14:59 | PC.NURSE ---
This nurse has tried to call Crystal Olivas twice today about mother. Crystal called this AM wanting and update on mother. This nurse called Sister Yolette to let her know Mary was being discharged home.
[2021-09-16] MEDS: cefTRIAXone 1,000 MG in sodium chloride 0.9% (plus) 50 ML 100 MG IV (15:40)
== END 2021-09-16 17:25 | disposition home or self-care (01) ==
LOC: ER 14:26 → MEDSURG 16:49
PROVIDERS: Admitting Provider Family Medicine; Emergency Provider Emergency Medicine; PCP Family Medicine; Visit Provider Family Medicine
DX: N39.0 Urinary tract infection, site not specified (principal); R41.82 Altered mental status, unspecified; I10 Essential (primary) hypertension; F03.90 Unspecified dementia, unspecified severity, without behavioral disturbance, psychotic disturbance, mood disturbance, and anxiety; Z91.51 Personal history of suicidal behavior; Z87.891 Personal history of nicotine dependence; Z66 Do not resuscitate
CPT/HCPCS: 36415; 36416; 70450; 80053; 80306; 80307; 81001; 82962; 83735; 84100; 84443; 84484; 85025; 85610; 87086; 93005; 94664; 96365; 96372; 99285; G0378; J0696; J1650

== ENCOUNTER 2021-09-21 07:35 | Emergency (ER) | payer MEDICARE, MEDICAID, SELFPAY ==
[2021-09-21] VITALS (7 sets, daily range): BP systolic 125–134; BP diastolic 52–64; PULSE 61–66; RESP 16–20; TEMP 36.6; O2SAT 93–95; BMI 21.6
--- NOTE | 2021-09-21 08:03 | XR_ITS ---
WS: [id number] Portable AP upright chest, 09/21/2021 Clinical Data: confusion Comparison: Portable chest, 09/05/2021. Findings: No nodules, masses or effusions are seen. The heart is normal. The pulmonary vascularity is not increased. No pneumonia or pneumothorax is seen. The aortic arch and descending thoracic aorta s how calcification and tortuosity. XR/XR chest 1V portable [id number] Impression: Atherosclerosis.
--- NOTE | 2021-09-21 08:08 | CT_ITS ---
WS: [id number] CT HEAD TECHNIQUE: Noncontrast CT of the head obtained from the skullbase to the vertex. CLINICAL INFORMATION: confusion COMPARISON: September 15, 2021 DLP: 722.[address] scans at [facility] use at least one of these dose optimization techniques: automated e xposure control; mA and/or kV adjustment per patient size (includes targeted exams where dose is matc hed to clinical indication); or iterative reconstruction. FINDINGS: No evidence of intracranial hemorrhage or mass effect. Ventricular system and basal cisterns are wallis nt. Mild small vessel changes with moderate parenchymal volume loss. No extra-axial fluid collections . No evidence of mass or mass effect. Intracranial vascular calcification. Paranasal sinuses and mastoid air cells are well aerated. .Normal visualized soft tissues. CT/CT head wo con* [id number] IMPRESSION: 1. No evidence of intracranial hemorrhage or mass effect. 2. Mild small vessel changes. Moderate parenchymal volume loss. 3. No acute intracranial findings.
--- NOTE | 2021-09-21 08:41 | W.ED.AMS ---
HPI - Altered Mental Status General: Chief Complaint: Altered Mental Status Stated Complaint: AMS, UTI, INCREASED CONFUSION Time Seen by Provider: 09/21/21 07:40 History of Present Illness: 85 year old female presents to the emergency department chief complaint of altered mental status she presents from home with her daughter present. Patient recent seen for a urinary tract infection admitted to the hospital overnight started on IV antibiotics when she had a delay of receiving her antibiotics over the weekend this happened last weekend. Per the daughter the patient has had a decreased confusion she has a known history of dementia in which the daughter is concerned about the patient's wellbeing. Patient has been more actively confused more than normal. Patient per the daughter has had active appetite reduction reporting patient just wants to sleep all the time reporting difficulty for her to take her meds. At this time the patient is her only guardian which there is no guardianship appointed over her. Daughter is concerned that the patient's urinary tract infection is worse due to her increased confusion she is noted. Patient does not report any recent falls nor injuries reporting no other associated symptoms. Associated symptoms: Deny depression Review of Systems General: Reports: 10 or more systems reviewed and unremarkable except in HPI and below Const: Reports: fatigue and malaise; Denies: fever(s) or chills Eyes: Denies: change in vision or blurry vision Card: Denies: chest pain or palpitations Resp: Denies: dyspnea or productive cough GI: Denies: abdominal pain, nausea or vomiting : Reports: flank pain and urinary frequency Musc: Denies: extremity pain or extremity swelling Skin/Breast: Denies: rash or pruritus Neuro: Denies: headache(s) Psych: Denies: anxiety or depression Jasvir/Lymph: Denies: easy bleeding All/Imm: Denies: urticaria, throat swelling or facial swelling [facility] ED PFSH: Medical History Acetaminophen overdose Major depression Suicide attempt Surgical History No pertinent past surgical history Social History Smoking and tobacco status: former smoker Alcohol intake: never Physical Exam Const: COMMON NORMALS: no acute distress and healthy appearing; negative for patient oriented x3 (Patient appears somewhat confused on exam no focal neuro deficits appreciat) HENMT: COMMON NORMALS: normocephalic and atraumatic HEAD & SCALP: normocephalic and atraumatic Eye: COMMON NORMALS: Equal, round and reactive pupils present and EOMs intact bilaterally PUPIL: Yes Equal, round and reactive pupils present Neck/C-Spine: COMMON NORMALS: full ROM, supple and no JVD Lymph: LYMPHATIC: no lymphadenopathy noted Chest: COMMONS NORMALS: normal inspection of the chest and normal palpation of entire chest wall Resp: COMMON NORMALS: normal respiratory effort, No retractions and clear to auscultation bilaterally EFFORT & INSPECTION: Yes able to speak in complete sentences and Yes symmetric chest movement AUSCULTATION: clear to auscultation bilaterally Cardio: COMMON NORMALS: no JVD, regular rate and regular rhythm RATE: regular rate RHYTHM: regular rhythm GI: COMMON NORMALS: Normal to inspection, nondistended, normoactive bowel sounds present, Soft to palpation and non-tender INSPECTION: Yes normal to inspection and Yes other (Mild tenderness noted to the suprapubic region otherwise soft nontender non) PALPATION: Yes Soft to palpation : COMMON NORMALS: Yes no CVA tenderness BLADDER/KIDNEY EXAM: Yes no CVA tenderness Back/Pelvis: COMMON NORMALS: no CVA tenderness Extremity: COMMON NORMALS: normal to inspection and full ROM Neuro: COMMON NORMALS: CN's II-XII intact bilaterally, moves all extremities and no focal motor deficits; negative for patient oriented x3 (Patient appears somewhat confused on exam no focal neuro deficits appreciat) Psych: COMMON NORMALS: mental status grossly normal, Normal thought process present, cooperative and normal affect THOUGHT PROCESS: Normal thought process present Skin: COMMON NORMALS: no rashes or lesions noted GENERAL SKIN EXAM: no rashes or lesions noted Const: COMMON NORMALS: no acute distress and healthy appearing; negative for patient oriented x3 (Patient appears somewhat confused on exam no focal neuro deficits appreciat) OTHER: Patient appears nontoxic appears in no obvious acute distress. HENMT: COMMON NORMALS: normocephalic and atraumatic HEAD & SCALP: normocephalic and atraumatic Eye: COMMON NORMALS: Equal, round and reactive pupils present and EOMs intact bilaterally PUPIL: Yes Equal, round and reactive pupils present Neck/C-Spine: COMMON NORMALS: full ROM, supple and no JVD Lymph: LYMPHATIC: no lymphadenopathy noted Chest: COMMONS NORMALS: normal inspection of the chest and normal palpation of entire chest wall Resp: COMMON NORMALS: normal respiratory effort, No retractions and clear to auscultation bilaterally EFFORT & INSPECTION: Yes able to speak in complete sentences and Yes symmetric chest movement AUSCULTATION: clear to auscultation bilaterally Cardio: COMMON NORMALS: no JVD, regular rate and regular rhythm RATE: regular rate RHYTHM: regular rhythm GI: COMMON NORMALS: Normal to inspection, nondistended, normoactive bowel sounds present, Soft to palpation and non-tender INSPECTION: Yes normal to inspection and Yes other (Mild tenderness noted to the suprapubic region otherwise soft nontender non) PALPATION: Yes Soft to palpation : COMMON NORMALS: Yes no CVA tenderness BLADDER/KIDNEY EXAM: Yes no CVA tenderness Back/Pelvis: COMMON NORMALS: no CVA tenderness Extremity: COMMON NORMALS: normal to inspection and full ROM Neuro: COMMON NORMALS: CN's II-XII intact bilaterally, moves all extremities and no focal motor deficits; negative for patient oriented x3 (Patient appears somewhat confused on exam no focal neuro deficits appreciat) Psych: COMMON NORMALS: mental status grossly normal, Normal thought process present, cooperative and normal affect THOUGHT PROCESS: Normal thought process present Skin: COMMON NORMALS: no rashes or lesions noted GENERAL SKIN EXAM: no rashes or lesions noted Course Vital Signs: Vital signs: Vital Signs Temperature 97.8 F 09/21/21 07:42 Pulse Rate 64 09/21/21 12:58 Respiratory Rate 18 09/21/21 12:58 Blood Pressure 125/62 09/21/21 12:58 Pulse Oximetry 95 09/21/21 12:58 MDM - Altered Mental Status Medical Decision Making Due to the patient's symptoms condition I will be established labwork and imaging will be obtained we will continue to follow clinically concerns or worsening the patient's UTI are prominent we will be obtaining urinalysis and blood work as well as fluids advised the patient's daughter clinical social work therapist/case management will be involved in regards to potential discharge planning specially patient does not qualify for inpatient admission will continue to follow. On exam patient does not have anything demonstrating of acute focal stroke just reporting generalized confusion per staff that took care of the patient on her last admission patient appears to be at baseline. Lab work and imaging came back reassuring discussed the patient's case at length with the case management as well as the patient and daughter in which will be doing a PT physical therapy evaluation to see if this would help qualify for care home placement anticipation is that we will be contacting several facilities today with anticipation most likely patient be discharged home will continue to follow at this time patient does not appear to be having any organic medical problems precluding her to have any additional altered mental status or confusion. Notified by nursing staff the PT OT evaluations been completed which will be submitted to the care home facility as per the request I believe the patient would benefit from care home placement at this time due to the lack of help she has her at her current location as well as he due to her considerable amount of weakness and fall risk. Patient was subsequent discharged home and under the care of her daughter advised further follow-up primary care in 3 to 5 days in which advised return the interim if any of her symptoms persist or worse. In regards to patient's lab work came back unremarkable no obvious acute process was found to have that could be contributing to her confusion however IV fluids did seem to help improve it which I suspect mild dehydration may have contributed. Lab Data : 09/21/21 08:42 09/21/21 08:42 Radiology Impressions Chest X-Ray 09/21/21 08:03 Impression: Atherosclerosis. Head CT 09/21/21 08:08 IMPRESSION: 1. No evidence of intracranial hemorrhage or mass effect. 2. Mild small vessel changes. Moderate parenchymal volume loss. 3. No acute intracranial findings. Laboratory Results WBC 3.7 10^3/uL (4.0-10.0) L 09/21/21 08:42 RBC 4.31 10^6/uL (4.1-5.3) 09/21/21 08:42 Hgb 13.7 g/dL (11.5-15.3) 09/21/21 08:42 Hct 41.5 % (37.0-47.0) 09/21/21 08:42 MCV 96.3 fl (81-99) 09/21/21 08:42 MCH 31.8 pg (28.0-34.0) 09/21/21 08:42 MCHC 33.0 g/dL (30.0-36.0) 09/21/21 08:42 RDW 12.2 % (12.1-15.1) 09/21/21 08:42 Plt Count 139 10^3/cmm (130-400) 09/21/21 08:42 MPV 10.3 fL (7.4-10.4) 09/21/21 08:42 Neut % (Auto) 67.8 % 09/21/21 08:42 Lymph % (Auto) 24.0 % 09/21/21 08:42 [place] % (Auto) 6.5 % 09/21/21 08:42 Eos % (Auto) 1.4 % 09/21/21 08:42 Baso % (Auto) 0.0 % 09/21/21 08:42 Neut # (Auto) 2.49 10^3/uL (1.8-7.7) 09/21/21 08:42 Lymph # (Auto) 0.9 10^3/uL (0.8-4.8) 09/21/21 08:42 [place] # (Auto) 0.2 10^3/uL (0.2-0.9) 09/21/21 08:42 Eos # (Auto) 0.1 10^3/uL (0.0-0.8) 09/21/21 08:42 Baso # (Auto) 0.0 10^3/uL (0.0-0.1) 09/21/21 08:42 Nucleated RBC % (auto) 0 % 09/21/21 08:42 Nucleated RBCs # 0.0 /100WBC 09/21/21 08:42 Sodium 137 mmol/L (136-145) 09/21/21 08:42 Potassium 4.0 mmol/L (3.5-5.1) 09/21/21 08:42 Chloride 101 mmol/L (98-107) 09/21/21 08:42 Carbon Dioxide 25 mmol/L (22-29) 09/21/21 08:42 Anion Gap 15.0 (5-19) 09/21/21 08:42 BUN 15 mg/dL (8-23) 09/21/21 08:42 Creatinine 0.7 mg/dL (0.5-0.9) 09/21/21 08:42 GFR Calculation Not Reportable 09/21/21 08:42 Glucose 91 mg/dL (65-115) 09/21/21 08:42 POC Glucose 89 mg/dL (70-110) 09/21/21 08:53 Calculated Osmolality 284 mOsm/kg (285-295) L 09/21/21 08:42 Lactate 1.2 mmol/L (0.5-2.2) 09/21/21 08:42 Calcium 9.2 mg/dL (8.5-10.5) 09/21/21 08:42 Total Bilirubin 0.7 mg/dL (0.15-1.2) 09/21/21 08:42 AST 17 U/L (0-32) 09/21/21 08:42 ALT 9 U/L (0-33) 09/21/21 08:42 Alkaline Phosphatase 69 IU/L (35-105) 09/21/21 08:42 C-Reactive Protein 9.7 mg/L (0.0-4.9) H 09/21/21 08:42 Total Protein 6.4 g/dL (6.6-8.7) L 09/21/21 08:42 Albumin 3.7 g/dL (3.5-5.2) 09/21/21 08:42 Globulin 2.7 g/dL (1.3-4.6) 09/21/21 08:42 Urine Color Yellow (Yellow) 09/21/21 09:22 Urine Appearance Clear (CLEAR) 09/21/21 09:22 Urine pH 5 (5-7) 09/21/21 09:22 Ur Specific [place] 1.020 (1.005-1.030) 09/21/21 09:22 Urine Protein Neg (Negative) 09/21/21 09:22 Urine Glucose (UA) Norm (Normal) 09/21/21 09:22 Urine Ketones 1+ (Negative) H 09/21/21 09:22 Urine Blood Neg (Negative) 09/21/21 09:22 Urine Nitrate Negative (Negative) 09/21/21 09:22 Urine Bilirubin Neg (Negative) 09/21/21 09:22 Urine Urobilinogen Norm mg/dL (Negative) 09/21/21 09:22 Ur Leukocyte Esterase Negative (Negative) 09/21/21 09:22 Salicylates < 0.3 mg/dL (3-10) L 09/21/21 08:42 Urine Opiates Screen Negative ng/mL (Negative) 09/21/21 09:22 Acetaminophen < 5.0 ug/mL (10-30) L 09/21/21 08:42 Ur Barbiturates Screen Negative ng/mL (Negative) 09/21/21 09:22 Ur Phencyclidine Scrn Negative ng/mL (Negative) 09/21/21 09:22 Ur Amphetamines Screen Negative ng/mL (Negative) 09/21/21 09:22 U Benzodiazepines Scrn Negative ng/mL (Negative) 09/21/21 09:22 Urine Cocaine Screen Negative ng/mL (Negative) 09/21/21 09:22 U Marijuana (THC) Screen Negative ng/mL (Negative) 09/21/21 09:22 Discharge Plan Discharge Patient Disposition: Home Clinical Impression: Dementia Condition: Stable Prescriptions: No Action metoprolol tartrate 100 mg tablet 100 mg PO BID 0RF celecoxib 200 mg capsule 200 mg PO BID 0RF trazodone 100 mg tablet 100 mg PO BEDTIME 0RF ciprofloxacin HCl 250 mg tablet 250 mg PO BID 0RF Discharge Orders: Discharge ED (Routine); Ordered 09/21/21 Ordered By: Quinten Barkley Referrals: Angie Shields NP [Primary Care Provider] - Discharge Diet: Usual diet Discharge Activity: Resume usual activity Activity Restrictions/Additional Instructions: Please follow-up with your primary care doctor in 2 to 3 days you will be contacted if we do find any availability as a facilities that we are sending out your physical therapy findings to. Please return to the interim if any of your symptoms persist or worse. Coding Level of Care Code ED Mine Inspector for Kelly Fwsantosh Exam Comprehensive
[2021-09-21 08:56] LABS: Glucose Point of Care 89 mg/dL (70-110)
[2021-09-21 09:07] LABS: Eosinophils # 0.1 10^3/uL (0.0-0.8); Eosinophils % 1.4 %; Hematocrit 41.5 % (37.0-47.0); Hemoglobin 13.7 g/dL (11.5-15.3); Lymphocytes # 0.9 10^3/uL (0.8-4.8); Mean Corpuscular Hemoglobin 31.8 pg (28.0-34.0); Mean Corpuscular Volume 96.3 fl (81-99); Mean Platelet Volume 10.3 fL (7.4-10.4); Monocytes # 0.2 10^3/uL (0.2-0.9); Monocytes % 6.5 %; Neutrophils # 2.49 10^3/uL (1.8-7.7); Neutrophils % 67.8 %; Nucleated Red Blood Cells % 0 %; Platelet Count 139 10^3/cmm (130-400); Red Blood Count 4.31 10^6/uL (4.1-5.3); Red Cell Distribution Width 12.2 % (12.1-15.1); White Blood Count 3.7 10^3/uL (4.0-10.0)
[2021-09-21 09:23] LABS: Alanine Aminotransferase 9 U/L (0-33); Albumin Level 3.7 g/dL (3.5-5.2); Alkaline Phosphatase 69 IU/L (35-105); Blood Urea Nitrogen 15 mg/dL (8-23); C Reactive Protein 9.7 mg/L (0.0-4.9); Calcium 9.2 mg/dL (8.5-10.5); Carbon Dioxide 25 mmol/L (22-29); Chloride 101 mmol/L (98-107); Creatinine Clr Calc Pharmacy 47.7544; Globulin 2.7 g/dL (1.3-4.6); Glucose 91 mg/dL (65-115); Osmolality Calculated 284 mOsm/kg (285-295); Sodium 137 mmol/L (136-145); Total Bilirubin 0.7 mg/dL (0.15-1.2); Total Protein 6.4 g/dL (6.6-8.7)
[2021-09-21] MEDS: sodium chloride 0.9% 1,000 ML 999 ML IV (09:23)
[2021-09-21 09:24] LABS: Lactate (Lactic Acid level) 1.2 mmol/L (0.5-2.2)
[2021-09-21 09:28] LABS: Add Urine Microscopic? NO; Charge for UA Resulting for Rev
[2021-09-21 09:29] LABS: Acetaminophen < 5.0 ug/mL (10-30); Salicylate < 0.3 mg/dL (3-10)
[2021-09-21 09:30] LABS: Aspartate Amino Transferase 17 U/L (0-32)
[2021-09-21 09:41] LABS: Urine Appearance Clear (CLEAR); Urine Color Yellow (Yellow)
[2021-09-21 09:42] LABS: Bilirubin Urine Neg (Negative); Blood Urine Neg (Negative); Glucose Urine UA Norm (Normal); Ketones Urine 1+ (Negative); Leukocyte Esterase Urine Negative (Negative); Nitrate Urine Negative (Negative); Protein Urine Neg (Negative); Urobilinogen Urine Norm (Negative); pH Urine 5 (5-7)
[2021-09-21 09:50] LABS: Amphetamines Screen Urine Negative (Negative); Barbiturates Screen Urine Negative (Negative); Benzodiazepines Screen Urine Negative (Negative); Cocaine Screen Urine Negative (Negative); Opiate Screen Urine Negative (Negative); PCP Screen Urine Negative (Negative); THC Screen Urine Negative (Negative)
--- NOTE | 2021-09-21 13:46 | DCPLANNER ---
online merchandising manager was asked to see if placement could be found for patient in a fdc. online merchandising manager faxed patients information to the following facilities and informed the facilities to call patients daughter if facility would be able to accept patient or not. [facility]on [facility] Part[facility] Rogers Explained to patients daughter that clinical case manager would fax patients information to the nursing facilities and that the facilities should be calling her with determination if the facility would accept patient or not.
== END 2021-09-21 13:20 | disposition home or self-care (01) ==
PROVIDERS: Emergency Provider Emergency Medicine; PCP Nurse Practitioner Family
DX: F03.90 Unspecified dementia, unspecified severity, without behavioral disturbance, psychotic disturbance, mood disturbance, and anxiety (principal); Z87.891 Personal history of nicotine dependence
CPT/HCPCS: 36416; 70450; 71045; 80053; 80306; 80307; 81003; 82962; 83605; 85025; 86140; 87040; 96360; 97161; 99284; J7030

== ENCOUNTER 2024-06-18 20:08 | Emergency (ER) | payer MEDICARE, MEDICAID, SELFPAY ==
[2024-06-18 20:11] VITALS: BP 162/78; PULSE 66; RESP 18; TEMP 36.6; O2SAT 94; BMI 16.6
--- NOTE | 2024-06-18 20:13 | CTR_ITS ---
PROCEDURE INFORMATION: Exam: CT Lumbar Spine Without Contrast Exam date and time: 06/18/2024 8:36 PM Age: 88 years old Clinical indication: Low back pain TECHNIQUE: Imaging protocol: Computed tomography of the lumbar spine without contrast. Radiation optimization: All CT scans at this facility use at least one of these dose optimization techniques: automated exposure control; mA and/or kV adjustment per patient size (includes targeted exams where dose is matched to clinical indication); or iterative reconstruction. COMPARISON: CT lumbar spine wo con* [id number] 04/18/2018 3:09 PM RADIATION DOSE METRICS: Total DLP (mGy-cm): 396.07 FINDINGS: Bones/joints: There is diffuse demineralization visualized osseous structures. There is approximate 40% compression of the superior endplate of L2 vertebral body. There is approximate 20% compression of the superior endplate of L3 vertebral body. Severe loss disc height with vacuum disc seen L4-L5 compatible with degenerative disc disease. Sclerosis, joint space narrowing and mild bony spurring is seen within the facets of lumbar spine compatible with osteoarthritic changes. Stomach and bowel: There is a prominent hiatal hernia measuring 8.5 cm transverse dimension containing a portion proximal stomach. Soft tissues: Unremarkable. CT/CT lumbar spine wo con* [id number] IMPRESSION: 1. There approximate 40% compression the superior endplate of L2 and 20% compression the superior endplate of L3 vertebral bodies likely secondary to the patient's diffuse demineralization. 2. Severe degenerative disc disease and loss of disc height at L4-L5. 3. Diffuse osteoarthritic changes of the facets of the lumbar spine 4. Hiatal hernia
--- NOTE | 2024-06-18 20:40 | ED_ITS ---
HPI - Back Pain/Injury General: Chief Complaint: Back Pain/Injury Stated Complaint: Back Pain, post fall Time Seen by Provider: 06/18/24 20:10 History of Present Illness: 88-year-old female who presents emergenc y room from [facility]. Her roommate is here in the emergency room and being transferred to a [facility] unit after she had thrown coffee on earlier today. This patient is here because of low back pain that is chronic but worsening. She had an x-ray recently but per report they could not read it because of her constipation. They treated her constipation and now they have sent her to the emergency room for imaging. No saddle numbness, no urinary retention or incontinence, no focal motor deficit, no sensory deficit. no recent fever. no cough. no shortness of breath. no chest pain. no abdominal pain. no nausea or vomiting. no dysuria. no altered mental status. no edema. Related Data Home Medications Medication Instructions Recorded Confirmed metoprolol tartrate 100 mg tablet 100 mg PO BID 01/18/21 09/21/21 celecoxib 200 mg capsule 200 mg PO BID 09/05/21 09/21/21 trazodone 100 mg tablet 100 mg PO BEDTIME 09/05/21 09/21/21 ciprofloxacin HCl 250 mg tablet 250 mg PO BID 09/21/21 09/21/21 Allergies Allergy/AdvReac Type Severity Reaction Status Date / Time No Known Allergies Allergy Verified 09/21/21 09:37 Review of Systems Narrative: Constitutional symptoms: Negative except as documented in HPI. Skin symptoms: Negative except as documented in HPI. Eye symptoms: Negative except as documented in HPI. ENMT symptoms: Negative except as documented in HPI. Respiratory symptoms: Negative except as documented in HPI. Cardiovascular symptoms: Negative except as documented in HPI. Gastrointestinal symptoms: Negative except as documented in HPI. Genitourinary symptoms: Negative except as documented in HPI. Musculoskeletal symptoms: Negative except as documented in HPI. Neurologic symptoms: Negative except as documented in HPI. Psychiatric symptoms: Negative except as documented in HPI. Endocrine symptoms: Negative except as documented in HPI. PFSH ED PFSH: Medical History Acetaminophen overdose Major depression Suicide attempt Surgical History No pertinent past surgical history Social History Smoking and tobacco/nicotine status: former use of tobacco/nicotine Alcohol intake: never Substance/Drug Use: never Physical Exam Narrative: EXAM NARRATIVE: General: Alert, no acute distress. Head: Normocephalic Neck: Trachea midline Eye: Extraocular movements are intact. Ears, nose, mouth and throat: Oral mucosa moist Respiratory: Respirations are non-labored Musculoskeletal: Normal ROM Back: no step off, no focal tenderness, some paraspinal muscle tenderness Neurological: Alert and oriented to person, place, time, and situation, No focal neurological deficit observed. Psychiatric: Cooperative, appropriate mood & affect. Course Vital Signs: Vital signs: Vital Signs Temperature 98 F 06/18/24 20:11 Pulse Rate 66 06/18/24 20:11 Respiratory Rate 18 06/18/24 20:11 Blood Pressure 162/78 06/18/24 20:11 Pulse Oximetry 94 06/18/24 20:11 MDM - Back Pain/Injury Medical Decision Making CT of the lumbar spine: Degenerative changes. 40% L2 compression fracture 20% L3.. Good alignment. No step-offs. This was reviewed and interpreted by myself the emergency room physician. Assessment and plan: Low back pain Vertebral compression fracture ?Patient has hydrocodone at the [facility]. - Discharged home - Discussed plan with patient. Answered any questions. - Evaluation and treatment of this problem were appropriate in the emergency setting. Labs Radiology Impressions Lumbar Spine CT 06/18/24 20:13 IMPRESSION: 1. There approximate 40% compression the superior endplate of L2 and 20% compression the superior endplate of L3 vertebral bodies likely secondary to the patient's diffuse demineralization. 2. Severe degenerative disc disease and loss of disc height at L4-L5. 3. Diffuse osteoarthritic changes of the facets of the lumbar spine 4. Hiatal hernia All radiology interpretation(s) finalized by discharge Discharge Plan Discharge Patient Disposition: Home Clinical Impression: Low back pain, Vertebral compression fracture Condition: Stable Prescriptions: No Action metoprolol tartrate 100 mg tablet 100 mg PO BID celecoxib 200 mg capsule 200 mg PO BID trazodone 100 mg tablet 100 mg PO BEDTIME ciprofloxacin HCl 250 mg tablet 250 mg PO BID Discharge Orders: Discharge ED (Routine); Ordered 06/18/24 Ordered By: Nikole Holbrook Referrals: Alexi Leal DO [Physician] - 7-10 days (Call for an appointment if your back pain does not improve) Discharge Diet: Usual diet Discharge Activity: Increase activity as tolerated Patient Instructions: Opioid Safety, Pain Management Activity Restrictions/Additional Instructions: Thank you for choosing [facility] for your healthcare needs today. Please realize this is an emergency room and that we are providing you with a medical screening exam and this may not be complete and all inclusive of all the testing and or work up that you may need to determine your ailment or severity of your illness. You have been screened and evaluated and felt safe for discharge. Health conditions do change or evolve sometimes and as such it is important that you follow up with your Primary Doctor to be re checked, 3-5 days is a general good time frame for follow up. You are always welcome to return to the ED for re assessment if your symptoms are worsening or you have new concerns Coding Level of Care Code ED [employer] Developer for Kelly Lucero
[2024-06-18 22:15] VITALS: BP 156/80; PULSE 72; O2SAT 92
[2024-06-18] MEDS: LORazepam 2 mg/mL INJ 1 mL 1 MG IM (22:47)
[2024-06-19 00:15] VITALS: BP 159/70; PULSE 75; O2SAT 91
[2024-06-19 02:15] VITALS: BP 170/78; PULSE 75; O2SAT 93
[2024-06-19] MEDS: LORazepam 2 mg/mL INJ 1 mL 1 MG IM (04:08)
[2024-06-19 11:16] VITALS: PULSE 91; O2SAT 100
== END 2024-06-19 11:20 | disposition home or self-care (01) ==
PROVIDERS: Emergency Provider Emergency Medicine
DX: S32.020A Wedge compression fracture of second lumbar vertebra, initial encounter for closed fracture (principal); S32.030A Wedge compression fracture of third lumbar vertebra, initial encounter for closed fracture; X58.XXXA Exposure to other specified factors, initial encounter
CPT/HCPCS: 72131; 96372; 99284; J2060